=== PATIENT | male | born 1940 | race African-American/Black ===

== ENCOUNTER 2018-07-13 17:39 | Inpatient (IN) | payer OTHER ==
--- NOTE | 2018-07-13 17:55 | PDOC ---
History of Present Illness - General Chief Complaint: Weakness Stated Complaint: Weakness Time Seen by Provider: 07/13/18 17:55 History Source: Patient, Detention Records Exam Limitations: Dementia - History of Present Illness Initial Comments: 07/13/18 18:27 78 year old male with PMH dementia, COPD, vitamin B12 deficiency anemia, HLD, HTN, GERD, TIA with residual deficits, generalized edema sent to ED from [facility] for low hemoglobin 4.5 on blood work. Pt denied any complaints, including chest pain, shortness of breath, increased sputum, increased cough, blood in stool, abdominal pain, palpitations. Allergies: NKDA Past History - Past Medical History Allergies/Adverse Reactions: Allergies Allergy/AdvReac Type Severity Reaction Status Date / Time No Known Allergies Allergy Verified 07/13/18 17:47 Anemia: Yes (vit b 12 deficiency,) CVA: Yes (TIA w/o residuals) COPD: Yes Dementia: Yes GI Disorders: Yes (gerd) HTN: Yes Other medical history: osteoporosis, repeated falls. - Suicide/Smoking/Psychosocial Hx Smoking History: Unknown if ever smoked Have you smoked in the past 12 months: No Information on smoking cessation initiated: No Hx Alcohol Use: No Drug/Substance Use Hx: No Review of Systems - Review of Systems Comments:: 07/13/18 18:28 General: denied fever, chills, night sweats, generalized weakness. HEENT: denied sore throat, rhinorrhea, ear pain. Heart: denied chest pain, palpitations, syncope, lower extremity swelling, diaphoresis. Respiratory: denied shortness of breath, cough, sputum production, hemoptysis. Abdomen: denied abdominal pain, nausea, vomiting, diarrhea, constipation, blood in stool. : denied dysuria, increased urinary frequency, hematuria, urinary incontinence , flank pain. Back: denied back pain. Musculoskeletal: denied joint pain, muscle pain, joint swelling. Neurological: denied headache, dizziness, numbness, tingling, weakness. Skin: denied rash, laceration, abrasion. *Physical Exam - Vital Signs Last Vital Signs Temp Pulse Resp BP Pulse Ox 98.8 F 77 16 134/79 100 07/13/18 17:42 07/13/18 17:42 07/13/18 17:42 07/13/18 17:42 07/13/18 17:42 - Physical Exam Comments: 07/13/18 18:29 Constitutional: Well-nourished, Well-developed, appearing stated age. HEENT: head is normocephalic, atraumatic. EOMI. PERRLA. Neck: supple. Full ROM. Heart: regular rhythm. no murmurs, rubs or gallops. Lungs: bibasilar crackles and rhonchi. minimal wheezing throughout. Abdomen: soft, nontender. normal bowel sounds. no rebound, guarding, masses. Extremities: Peripheral pulses intact. 3+ pitting edema bilaterally. Neurological: CN 2-12 grossly intact. Moves all four extremities. Psych: awake, alert, oriented to person and place. not oriented to time. Follows commands. Answers questions appropriately. Moderate Sedation - Procedure Monitoring Vital Signs: Procedure Monitoring Vital Signs Temperature 98.8 F 07/13/18 17:42 Pulse Rate 77 07/13/18 17:42 Respiratory Rate 16 07/13/18 17:42 Blood Pressure 134/79 07/13/18 17:42 O2 Sat by Pulse Oximetry (%) 100 07/13/18 17:42 ED Treatment Course - LABORATORY CBC & Chemistry Diagram: 07/13/18 18:18 07/13/18 18:18 Medical Decision Making - Medical Decision Making 07/13/18 18:30 78 year old male with above PMH [facility] low hemoglobin of 4.5. Pt is asymptomatic. Initial Vital Signs Temp Pulse Resp BP Pulse Ox 98.8 F 77 16 134/79 100 07/13/18 17:42 07/13/18 17:42 07/13/18 17:42 07/13/18 17:42 07/13/18 17:42 Afebrile. No tachycardia. No tachypnea. No hypotension. No hypoxia on room air. EKG performed at Labs ordered: CBC, CMP, troponin, stool for blood, coags, T/Sx2 Imaging ordered: CXR Medications ordered: none 07/13/18 19:15 CBC WBC 3.6 K/mm3 (4.0-10.0) L 07/13/18 18:18 RBC 2.95 M/mm3 (4.00-5.60) L 07/13/18 18:18 Hgb 5.3 GM/dL (11.7-16.9) L* 07/13/18 18:18 Hct 18.2 % (35.4-49) L 07/13/18 18:18 MCV 61.9 fl (80-96) L 07/13/18 18:18 MCH 17.9 pg (25.7-33.7) L 07/13/18 18:18 MCHC 29.0 g/dl (32.0-35.9) L 07/13/18 18:18 RDW 23.3 % (11.9-15.9) H 07/13/18 18:18 Plt Count 326 K/MM3 (134-434) 07/13/18 18:18 MPV 8.9 fl (7.5-11.1) 07/13/18 18:18 Absolute Neuts (auto) 1.1 K/mm3 (1.5-8.0) L 07/13/18 18:18 Neutrophils % 30.8 % (42.8-82.8) L 07/13/18 18:18 Lymphocytes % 57.5 % (8-40) H 07/13/18 18:18 Monocytes % 8.8 % (3.8-10.2) 07/13/18 18:18 Eosinophils % 2.2 % (0-4.5) 07/13/18 18:18 Basophils % 0.7 % (0-2.0) 07/13/18 18:18 Nucleated RBC % 0 % (0-0) 07/13/18 18:18 Leukopenia. Microcytic anemia. Lymphocytosis. CMP Sodium 138 mmol/L (136-145) 07/13/18 18:18 Potassium 3.7 mmol/L (3.5-5.1) 07/13/18 18:18 Chloride 108 mmol/L (98-107) H 07/13/18 18:18 Carbon Dioxide 21 mmol/L (21-32) 07/13/18 18:18 Anion Gap 8 MMOL/L (8-16) 07/13/18 18:18 BUN 24 mg/dL (7-18) H 07/13/18 18:18 Creatinine 1.1 mg/dL (0.55-1.3) 07/13/18 18:18 Creat Clearance w eGFR > 60 (>60) 07/13/18 18:18 Random Glucose 88 mg/dL (74-106) 07/13/18 18:18 Calcium 8.1 mg/dL (8.5-10.1) L 07/13/18 18:18 Total Bilirubin 0.4 mg/dL (0.2-1) 07/13/18 18:18 AST 21 U/L (15-37) 07/13/18 18:18 ALT 25 U/L (13-61) 07/13/18 18:18 Alkaline Phosphatase 121 U/L (45-117) H 07/13/18 18:18 Troponin I < 0.02 ng/ml (0.00-0.05) 07/13/18 18:18 Total Protein 8.0 g/dl (6.4-8.2) 07/13/18 18:18 Albumin 3.0 g/dl (3.4-5.0) L 07/13/18 18:18 No electrolyte abnormalities. Elevated BUN. Normal troponin. Stool positive for blood. Microcytic anemia with increased BUN and positive blood in stool suggestive of upper GIB. Medications ordered: 2 units packed RBC, protonix 80 mg IV 07/13/18 20:04 I spoke with IM Resident Dr. Kelly Dent about the case, pt to be admitted under Dr. Roberto's service. 07/13/18 20:11 CXR performed, pending official read. Lab called, blood is ready. RN informed. *DC/Admit/Observation/Transfer Diagnosis at time of Disposition: Anemia, Occult blood positive stool, Leukopenia, GIB (gastrointestinal bleeding ) - Discharge Dispostion Condition at time of disposition: Stable Decision to Admit order: Yes - Referrals - Patient Instructions - Post Discharge Activity
[2018-07-13 18:32] LABS: HEMATOCRIT 18.2 % (35.4-49); MEAN CELL VOLUME 61.9 fl (80-96); MEAN PLT VOLUME 8.9 fl (7.5-11.1); PLATELET COUNT 326 K/MM3 (134-434); RBC 2.95 M/mm3 (4.00-5.60); RDW 23.3 % (11.9-15.9); WHITE BLOOD COUNT 3.6 K/mm3 (4.0-10.0)
[2018-07-13 18:43] LABS: HEMOGLOBIN 5.3 GM/dL (11.7-16.9); MCH 17.9 pg (25.7-33.7)
[2018-07-13 19:02] LABS: ALK PHOS 121 U/L (45-117); ANION GAP 8 MMOL/L (8-16); BILIRUBIN,TOTAL 0.4 mg/dL (0.2-1); BLOOD UREA NITROGEN 24 mg/dL (7-18); CALCIUM 8.1 mg/dL (8.5-10.1); CHLORIDE 108 mmol/L (98-107); CO2 21 mmol/L (21-32); CREATININE 1.1 mg/dL (0.55-1.3); GLUCOSE,RANDOM 88 mg/dL (74-106); POTASSIUM 3.7 mmol/L (3.5-5.1); SGOT/AST 21 U/L (15-37); SGPT/ALT 25 U/L (13-61); SODIUM 138 mmol/L (136-145)
--- NOTE | 2018-07-13 19:08 | PDOC ---
Attending Attestation - Resident Resident Name: Macie Painter - ED Attending Attestation I have performed the following: I have examined & evaluated the patient, The case was reviewed & discussed with the resident, I agree w/resident's findings & plan, Exceptions are as noted - HPI HPI: 07/13/18 19:12 The patient is a 78 year old male, with a significant PMH of vitamin B12 deficiency anemia, dementia, COPD, HLD, HTN, GERD, TIA with residual deficits, generalized edema (baseline), and osteoporosis, who presents to the emergency department today from [facility] for low measured hemoglobin (4.5). Patient denies any pain or other symptoms at this time. The patient denies chest pain, shortness of breath, headache and dizziness. Denies fever, chills, nausea, vomit, diarrhea and constipation. Denies dysuria, frequency, urgency and hematuria. Allergies: NKA Past surgical history: None reported Social history: No reported PCP: Dr. Juan C Johnson - Physicial Exam PE: 07/13/18 19:05 GENERAL: The patient is awake, oriented x 2, Nontoxic - in no acute distress. HEAD: Normocephalic, atraumatic. EYES: extraocular movements intact, pale conjunctiva ENT: Normal voice, Moist mucous membranes. NECK: Normal range of motion, supple LUNGS: b/l scattered wheezing, no acute respiratory distress HEART: iregular ABDOMEN: Soft, nontender, No guarding, no rebound. EXTREMITIES: b/l pitting edema NEUROLOGICAL: No facial assymetry, Normal speech, PSYCH: Normal mood, normal affect. SKIN: Warm, Dry, normal turgor, - Medical Decision Making 07/13/18 19:04 pt noted to be anemic to 5.3 no known source vitals normal pending guiaiac will transfuse and admit <Griffin Brnik - Last Filed: 07/13/18 19:12> - Medical Decision Making Documentation prepared by DANITZA Ruiz, acting as director of graduate medical education for Griffin Brink MD. 07/13/18 21:51 <Cielo Gordillo - Last Filed: 07/13/18 21:52>
[2018-07-13 19:14] LABS: INR 1.16 (0.83-1.09); PROTHROMBIN TIME (PATIENT) 13.7 SEC (9.7-13.0)
[2018-07-13 19:17] LABS: ACTIVATED PTT 29.8 SECONDS (25.2-36.5)
[2018-07-13] MEDS ORDERED: PANTOPRAZOLE SODIUM 40 MG VIAL IVPUSH ONE (19:38)
[2018-07-13] MEDS ORDERED: PANTOPRAZOLE SODIUM 40 MG VIAL ONE (19:56)
--- NOTE | 2018-07-13 20:09 | PN ---
Teaching Attending Note Name of Resident: Kelly Dent ATTENDING PHYSICIAN STATEMENT I saw and evaluated the patient. I reviewed the resident's note and discussed the case with the resident. I agree with the resident's findings and plan as documented. SUBJECTIVE: Patient is a 78 year old man with a significant PMH of Vitamin B12 deficiency anemia, Dementia, COPD, HLD, HTN, GERD, TIA with residual deficits, generalized edema (baseline), and osteoporosis, who presents to the ER today from [facility] for low measured hemoglobin (4.5). Patient denies any pain or other symptoms at this time. Had loose bowel movements 4 days ago, but has been constipated since then. The patient denies chest pain, shortness of breath, headache and dizziness. Denies fever, chills, nausea, vomit, dysuria, frequency , urgency or hematuria. OBJECTIVE: Alert Vital Signs Period Temp Pulse Resp BP Sys/Bocanegra Pulse Ox Last 24 Hr 98.8 F 77 16 134/79 100 HEENT: No Jaundice, eye redness or discharge, PERRLA, EOMI. Conjuctival pallor. Normocephalic, atraumatic. External ears are normal and hearing is grossly intact. No nasal discharge. Neck: Supple, nontender. No palpable adenopathy or thyromegaly. No JVD Chest: Good effort. Clear to auscultation and percussion. Heart: Regular. No S3, rub or murmur Abdomen: Distended, tympanic; soft, nontender and no HSM. No rebound or guarding. Normoactive bowel sounds. Ext: Peripheral pulses intact. Leg edema. Skin: Warm and dry. No petechiae, rash or ecchymosis. Neuro: Alert. Oriented to person. CN 2-12 grossly intact. Sensation grossly intact in all four extremities and DTR are symmetric. Abnormal Lab Results 07/13/18 07/13/18 07/13/18 18:00 18:18 18:18 WBC 3.6 L RBC 2.95 L Hgb 5.3 L* Hct 18.2 L MCV 61.9 L MCH 17.9 L MCHC 29.0 L RDW 23.3 H Absolute Neuts (auto) 1.1 L Neutrophils % 30.8 L Lymphocytes % 57.5 H PT with INR INR Chloride 108 H BUN 24 H Calcium 8.1 L Alkaline Phosphatase 121 H Albumin 3.0 L Crossmatch See Detail 07/13/18 18:44 WBC RBC Hgb Hct MCV MCH MCHC RDW Absolute Neuts (auto) Neutrophils % Lymphocytes % PT with INR 13.70 H INR 1.16 H Chloride BUN Calcium Alkaline Phosphatase Albumin Crossmatch ASSESSMENT AND PLAN: 1. Severe anemia and GI Bleeding - Patient know to have anemia due to Vitamin B12 deficiency. Acute worsening likely due to GI bleeding. Will send blood for iron studies. Being transfused PRBC. Will treat with IV protonix 40 mg q 12 hours for GI bleeding and consult GI. He has "brown stool" - no evidence active GI bleeding at this time - will hold aspirin but continue plavix since he is unable to tell us if he has cardiac stents. Will contact PCP and NH tomorrow to confirm if he has cardiac stents. CXR shows cardiomegaly and an unfolded aorta, and EKG shows Afib with no significant ST-T wave changes. Will give bowel regimen for constipation, and if his abdomen remains distended after resolution of constipation, will get a sonogram/CT of his abdomen. Going forward, will benefit from treatment with IV iron if iron deficiency is confirmed. 2. Hypoalbuminemia - Possibly due to combined effects of malnutrition and inflammation associated with comorbid chronic conditions. Will ensure adequate dietary protein intake and also consult primary teacher. Get UA to rule out proteinuria. 3. Hypertension - Restart outpatient antihypertensive drugs and revise regimen to ensure smooth [id number] good BP control. Nonpharmacologic measures to control hypertension like weight loss, salt restriction and exercise discussed. 4. DVT prophylaxis - SCDs, TEDs 5. Advance directives - Full code
[2018-07-13 21:02] LABS: ANISOCYTOSIS 3+
[2018-07-13 21:03] LABS: PLATELET ESTIMATE ADEQUATE
[2018-07-13] MEDS ORDERED: SENNOSIDES 8.6MG TABLET (FP) PO PRN (21:56)
[2018-07-13] MEDS ORDERED: PANTOPRAZOLE 40 MG TABLET (FP) PO SCH (22:00)
--- NOTE | 2018-07-13 22:28 | HP ---
CHIEF COMPLAINT: anemia PCP: Dr. Juan C Johnson HISTORY OF PRESENT ILLNESS: 78M w/ pmhx of COPD, Vitamin B12 def anemia, HLD, HTN, GERD, TIA, dementia was sent to the ED from [facility] found to have Hgb of 4.5. Upon exam, pt did not have any symptomatic complaints. He denies headaches, dizziness, lightheadedness , chest pain, palpitations, shortness of breath, dyspnea on exertion, abdominal pain, dysuria, hematuria, black stools, bright red blood in stools. He does admit to having an episode of dark brown diarrhea 3 days ago, but has not had a bowel movement since. Additionally, he admits to abdominal distension, but no pain. He denies nose bleeds, abnormal bleeding episodes, easy bruising. ER course was notable for: (1) BP 134/79, H/H 5.3/18.2, +FOBT (2) 2 pRBCs ordered, Protonix 80 IVP (3) Recent Travel: Denies PAST MEDICAL HISTORY: As per HPI (taken from [facility] records) PAST SURGICAL HISTORY: Denies Social History: Smoking: Former smoker; stopped 5 years ago, 2PPD for many years Alcohol: Denies Drugs: Denies Family History: Allergies No Known Allergies Allergy (Verified 07/13/18 17:47) HOME MEDICATIONS: REVIEW OF SYSTEMS As per HPI PHYSICAL EXAMINATION Vital Signs - 24 hr 07/13/18 07/13/18 17:42 20:26 Temperature 98.8 F 98.4 F Pulse Rate 77 Respiratory 16 Rate Blood Pressure 134/79 O2 Sat by Pulse 100 Oximetry (%) GENERAL: Awake and alert, oriented to person only. Resting comfortably in bed. HEENT: AT/NC. EOMI. ARCELIA. Dry mucus membranes. NECK: Normal range of motion, supple, no LAD, JVD. LUNGS: Crackles in R lower lung base; clear throughout rest of lung valadez b/l HEART: RRR. Normal S1, S2. No murmurs noted. ABDOMEN: Distended, but nontender to palpation. Hypoactive BS. Hypertympanic to percussion. MUSCULOSKELETAL: No CVA tenderness. UPPER EXTREMITIES: 2+ pulses, warm, well-perfused. No cyanosis. No clubbing. No peripheral edema. LOWER EXTREMITIES: 2+ pulses, warm, well-perfused. No calf tenderness. 2+ pitting edema b/l lower legs and feet. NEUROLOGICAL: Normal speech. 5/5 b/l arm and elbow flexion/extension. 5/5 L hip flexion. 4/5 R hip flexion. Limited knee flexion. SKIN: Warm, dry, normal turgor, no rashes or lesions noted, normal capillary refill. Laboratory Results - last 24 hr 07/13/18 07/13/18 07/13/18 18:00 18:18 18:18 WBC 3.6 L RBC 2.95 L Hgb 5.3 L* Hct 18.2 L MCV 61.9 L MCH 17.9 L MCHC 29.0 L RDW 23.3 H Plt Count 326 MPV 8.9 Absolute Neuts (auto) 1.1 L Neutrophils % Steel Spar Operator Neutrophils % (Manual) 62.0 Band Neutrophils % 0.0 Lymphocytes % Steel Spar Operator Lymphocytes % (Manual) 23.0 Monocytes % Steel Spar Operator Monocytes % (Manual) 10 Eosinophils % Steel Spar Operator Eosinophils % (Manual) 5.0 H Basophils % Steel Spar Operator Basophils % (Manual) 0.0 Nucleated RBC % 0 Hypochromia 3+ Platelet Estimate Adequate Poikilocytosis 1+ Anisocytosis 3+ [place] Cells Few Acanthocytes (Spur) Few PT with INR INR PTT (Actin FS) Sodium 138 Potassium 3.7 Chloride 108 H Carbon Dioxide 21 Anion Gap 8 BUN 24 H Creatinine 1.1 Creat Clearance w eGFR > 60 Random Glucose 88 Calcium 8.1 L Total Bilirubin 0.4 AST 21 ALT 25 Alkaline Phosphatase 121 H Troponin I < 0.02 Total Protein 8.0 Albumin 3.0 L Stool Occult Blood Anti-A Titer Blood Type O POSITIVE Antibody Screen Negative Crossmatch See Detail 07/13/18 07/13/18 07/13/18 18:18 18:44 18:48 WBC RBC Hgb Hct MCV MCH MCHC RDW Plt Count MPV Absolute Neuts (auto) Neutrophils % Neutrophils % (Manual) Band Neutrophils % Lymphocytes % Lymphocytes % (Manual) Monocytes % Monocytes % (Manual) Eosinophils % Eosinophils % (Manual) Basophils % Basophils % (Manual) Nucleated RBC % Hypochromia Platelet Estimate Poikilocytosis Anisocytosis Edwin Cells Acanthocytes (Spur) PT with INR 13.70 H INR 1.16 H PTT (Actin FS) 29.8 Sodium Potassium Chloride Carbon Dioxide Anion Gap BUN Creatinine Creat Clearance w eGFR Random Glucose Calcium Total Bilirubin AST ALT Alkaline Phosphatase Troponin I Total Protein Albumin Stool Occult Blood Positive Anti-A Titer Cancelled Blood Type Cancelled Antibody Screen Cancelled Crossmatch 07/13/18 18:50 WBC RBC Hgb Hct MCV MCH MCHC RDW Plt Count MPV Absolute Neuts (auto) Neutrophils % Neutrophils % (Manual) Band Neutrophils % Lymphocytes % Lymphocytes % (Manual) Monocytes % Monocytes % (Manual) Eosinophils % Eosinophils % (Manual) Basophils % Basophils % (Manual) Nucleated RBC % Hypochromia Platelet Estimate Poikilocytosis Anisocytosis Edwin Cells Acanthocytes (Spur) PT with INR INR PTT (Actin FS) Sodium Potassium Chloride Carbon Dioxide Anion Gap BUN Creatinine Creat Clearance w eGFR Random Glucose Calcium Total Bilirubin AST ALT Alkaline Phosphatase Troponin I Total Protein Albumin Stool Occult Blood Anti-A Titer Blood Type O POSITIVE Antibody Screen Crossmatch IMAGING: ASSESSMENT/PLAN: 78M w/ pmhx of COPD, Vitamin B12 def anemia, HLD, HTN, GERD, TIA, dementia was sent to the ED from [facility] found to have Hgb of 4.5 admitted for anemia. #Acute Anemia; Iron deficiency vs. Vitamin B12 vs. GI bleed -H/H 5.3/18.2 -T&S, 2U pRBCs ordered -Consider Iron studies post-transfusion -Consider GI consult as FOBT is +, however pt reports only dark brown stool -repeat CBC after 2U given -Cont to monitor for any further acute bleed -Will give bowel regimen for constipation, if abd remains distended after resolution of constipation, consider sonogram/CT of his abdomen. Going forward, will benefit from treatment with IV iron if iron deficiency is confirmed. #HTN Cont home meds: Metoprolol Succinate 12.5 PO QD #HLD Cont home meds: Atorvastatin 80 PO HS #COPD Cont home meds: Duonebs #Vitamin B12 deficiency anemia -Low MCV 61.9; likely not etiology of acute anemia this admission -outpatient follow up #Osteoporosis -Pt takes Vitamin D2 50,000U weekly and Fosamax 70 PO weekly. May continue as outpatient after discharge. #Hx of TIA -Hold Aspirin and Plavix for now #Dementia -Pt not currently on meds accrording to [place] medication list. #Prophylaxis -SCDs; hold AC -Protonix 40 mg IVP BID #FEN -no IVf as patient is getting 2U -recheck CBC/CMP in AM -sodium-controlled diet dispo -full code -admit to med-surg Visit type - Emergency Visit Emergency Visit: Yes ED Registration Date: 07/13/18 Care time: The patient presented to the Emergency Department on the above date and was hospitalized for further evaluation of their emergent condition. - New Patient This patient is new to me today: Yes Date on this admission: 07/14/18 - Critical Care Critical Care patient: No
[2018-07-14 01:20] VITALS: BMI 21.2
[2018-07-14] MEDS: DOCUSATE SODIUM 100 MG CAPSULE (FP) PO SCH ×3 (06:32→22:11)
[2018-07-14 07:42] LABS: HEMATOCRIT 19.9 % (35.4-49); MCH 20.5 pg (25.7-33.7); MCHC 30.8 g/dl (32.0-35.9); MEAN CELL VOLUME 66.5 fl (80-96); MEAN PLT VOLUME 8.7 fl (7.5-11.1); PLATELET COUNT 243 K/MM3 (134-434); RBC 2.99 M/mm3 (4.00-5.60); RDW 26.7 % (11.9-15.9); WHITE BLOOD COUNT 4.4 K/mm3 (4.0-10.0)
[2018-07-14 08:19] LABS: HEMOGLOBIN 6.1 GM/dL (11.7-16.9)
[2018-07-14 08:55] LABS: ALBUMIN 2.6 g/dl (3.4-5.0); ALK PHOS 102 U/L (45-117); ANION GAP 9 MMOL/L (8-16); BILIRUBIN,TOTAL 0.8 mg/dL (0.2-1); BLOOD UREA NITROGEN 22 mg/dL (7-18); CALCIUM 7.8 mg/dL (8.5-10.1); CHLORIDE 111 mmol/L (98-107); CO2 21 mmol/L (21-32); CREATININE 1.1 mg/dL (0.55-1.3); GLUCOSE,RANDOM 76 mg/dL (74-106); POTASSIUM 3.2 mmol/L (3.5-5.1); SGOT/AST 15 U/L (15-37); SGPT/ALT 20 U/L (13-61); SODIUM 140 mmol/L (136-145); TOT PROT 6.6 g/dl (6.4-8.2)
[2018-07-14] MEDS: PANTOPRAZOLE SODIUM 40 MG VIAL IVPUSH SCH ×2 (10:04→22:10)
[2018-07-14] MEDS: metoPROLOL SUCCINATE 25 MG TAB.SR.24H (FP) PO SCH (10:05)
[2018-07-14] MEDS: POLYETHYLENE GLYCOL 3350 119 GM BTL PO SCH (10:05)
--- NOTE | 2018-07-14 11:26 | PN ---
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 [facility] Stop: 07/14/18 16:00 Potassium Chloride (Potassium Chloride 10 Meq Premix Ivpb -) 10 meq in 100 mls @ 100 mls/hr IVPB Q60M [facility] Stop: 07/14/18 14:29 Metoprolol Succinate (Toprol Xl -) 12.5 mg PO DAILY [facility] Last Admin: 07/14/18 10:05 Dose: 12.5 mg Pantoprazole Sodium (Protonix Iv) 40 mg IVPUSH BID [facility] Last Admin: 07/14/18 10:04 Dose: 40 mg Polyethylene Glycol (Miralax (For Daily Use) -) 17 gm PO DAILY [facility] Last Admin: 07/14/18 10:05 Dose: 17 gm Senna (Senna -) 2 tab PO HS PRN PRN Reason: CONSTIPATION - Objective Vital Signs: Vital Signs Temperature 98.3 F 07/14/18 05:33 Pulse Rate 72 07/14/18 05:33 Respiratory Rate 20 07/14/18 05:33 Blood Pressure 131/77 07/14/18 05:33 O2 Sat by Pulse Oximetry (%) 97 07/13/18 22:55 Constitutional: Yes: No Distress, Calm Eyes: Yes: Conjunctiva Clear Neck: Yes: Supple Cardiovascular: Yes: Regular Rate and Rhythm Respiratory: Yes: CTA Bilaterally Gastrointestinal: Yes: Soft Edema: No Neurological: Yes: Alert Psychiatric: Yes: Alert Labs: CBC, BMP 07/14/18 07:00 07/14/18 07:00 INR, PTT INR 1.16 (0.83-1.09) H 07/13/18 18:44 Problem List - Problems (1) Anemia requiring transfusions Code(s): D64.9 - ANEMIA, UNSPECIFIED (2) Dementia Code(s): F03.90 - UNSPECIFIED DEMENTIA WITHOUT BEHAVIORAL DISTURBANCE Assessment/Plan transfuse lasix in between i/v protonix hold plavix for now gi consult ekg-- routine -- not done -- will order will follow
[2018-07-14] MEDS ORDERED: FUROSEMIDE 40 MG/4 ML INJECTABLE VIAL IVPUSH SCH (12:00)
[2018-07-14 12:20] LABS: ANISOCYTOSIS 3+; MACROCYTOSIS 0; PLATELET ESTIMATE NORMAL; TARGET CELLS 1+
--- NOTE | 2018-07-14 12:53 | EKG ---
Test Reason : Blood Pressure : / mmHG Vent. Rate : 063 BPM Atrial Rate : 326 BPM P-R Int : 000 ms QRS Dur : 076 ms QT Int : 488 ms P-R-T Axes : 000 -13 013 degrees QTc Int : 499 ms POOR DATA QUALITY, INTERPRETATION MAY BE ADVERSELY AFFECTED ATRIAL FIBRILLATION JUNCTIONAL ST DEPRESSION, PROBABLY NORMAL PROLONGED QT ABNORMAL ECG NO PREVIOUS ECGS AVAILABLE Confirmed by KAVON IBARRA, PER ([id number]) on 07/14/2018 12:53:14 PM Referred By: Confirmed By:PER JACOBSON MD
--- NOTE | 2018-07-14 15:00 | EKG ---
Test Reason : Blood Pressure : / mmHG Vent. Rate : 053 BPM Atrial Rate : 053 BPM P-R Int : 184 ms QRS Dur : 080 ms QT Int : 456 ms P-R-T Axes : 054 003 034 degrees QTc Int : 427 ms SINUS BRADYCARDIA WITH MARKED SINUS ARRHYTHMIA Confirmed by VALE GRULLON MD ([id number]) on 07/14/2018 3:00:49 PM Referred By: Confirmed By:VALE GRULLON MD
[2018-07-14] MEDS: KCL 10 MEQ IVPB 10 MEQ/100 ML INFUS.BAG IVPB SCH ×3 (16:53→23:21)
[2018-07-14] MEDS: ATORVASTATIN CA 80 MG TABLET (FP) PO SCH (22:10)
[2018-07-15] MEDS: KCL 10 MEQ IVPB 10 MEQ/100 ML INFUS.BAG IVPB SCH (00:38)
[2018-07-15] MEDS: DOCUSATE SODIUM 100 MG CAPSULE (FP) PO SCH ×3 (06:11→22:14)
[2018-07-15 08:05] LABS: EOS % 5.4 % (0-4.5); HEMATOCRIT 25.5 % (35.4-49); HEMOGLOBIN 8.1 GM/dL (11.7-16.9); LYMPH % 45.4 % (8-40); MCH 21.7 pg (25.7-33.7); MCHC 31.7 g/dl (32.0-35.9); MEAN CELL VOLUME 68.7 fl (80-96); MEAN PLT VOLUME 8.5 fl (7.5-11.1); MONO % 8.1 % (3.8-10.2); NEUT % 40.1 % (42.8-82.8); PLATELET COUNT 250 K/MM3 (134-434); RBC 3.71 M/mm3 (4.00-5.60); RDW 27.8 % (11.9-15.9); WHITE BLOOD COUNT 5.5 K/mm3 (4.0-10.0)
[2018-07-15 08:11] LABS: ADD RBC MORPHOLOGY YES
[2018-07-15 08:36] LABS: ALBUMIN 2.8 g/dl (3.4-5.0); ALK PHOS 111 U/L (45-117); ANION GAP 7 MMOL/L (8-16); BILIRUBIN,TOTAL 1.1 mg/dL (0.2-1); BLOOD UREA NITROGEN 14 mg/dL (7-18); CALCIUM 8.2 mg/dL (8.5-10.1); CHLORIDE 111 mmol/L (98-107); CO2 23 mmol/L (21-32); GLUCOSE,RANDOM 76 mg/dL (74-106); POTASSIUM 3.4 mmol/L (3.5-5.1); SGOT/AST 18 U/L (15-37); SGPT/ALT 20 U/L (13-61); SODIUM 141 mmol/L (136-145)
[2018-07-15] MEDS: PANTOPRAZOLE SODIUM 40 MG VIAL IVPUSH SCH ×2 (10:25→22:14)
[2018-07-15] MEDS: metoPROLOL SUCCINATE 25 MG TAB.SR.24H (FP) PO SCH (10:25)
[2018-07-15] MEDS: POLYETHYLENE GLYCOL 3350 119 GM BTL PO SCH (10:25)
--- NOTE | 2018-07-15 12:51 | PN ---
Progress Note (short form) - Note Progress Note: pt seen/ examined feels good no complains denies cp/sob got transfusion Vital Signs Temp 98.5 F 07/15/18 09:05 Pulse 66 07/15/18 09:05 Resp 16 07/15/18 09:05 BP 127/64 07/15/18 09:05 Pulse Ox 97 07/15/18 09:05 Intake & Output 07/14/18 07/15/18 07/15/18 23:59 11:59 23:59 Intake Total 1910 750 Output Total 600 450 Balance 1310 300 Intake: IVPB 200 200 Oral 1000 550 Packed Cells 710 Output: Urine 600 450 Void 600 450 Other: Voiding Method Urinal Urinal Bowel Movement Yes: SOFT BOWEL M. # Bowel Movements 1 Active Medications Atorvastatin Calcium (Lipitor -) 80 mg PO HS [facility] Last Admin: 07/14/18 22:10 Dose: 80 mg Docusate Sodium (Colace -) 100 mg PO TID [facility] Last Admin: 07/15/18 06:11 Dose: 100 mg Furosemide (Lasix Injection -) 40 mg IVPUSH DAILY [facility] Metoprolol Succinate (Toprol Xl -) 12.5 mg PO DAILY [facility] Last Admin: 07/15/18 10:25 Dose: 12.5 mg Pantoprazole Sodium (Protonix Iv) 40 mg IVPUSH BID [facility] Last Admin: 07/15/18 10:25 Dose: 40 mg Polyethylene Glycol (Miralax (For Daily Use) -) 17 gm PO DAILY [facility] Last Admin: 07/15/18 10:25 Dose: 17 gm Senna (Senna -) 2 tab PO HS PRN PRN Reason: CONSTIPATION CBC, BMP 07/15/18 06:40 07/15/18 06:40 - Objective Constitutional: Yes: No Distress, Calm and comfortable. Eyes: Yes: Conjunctiva Clear Neck: Yes: Supple. no jvd Cardiovascular: Yes: Regular Rate and Rhythm Respiratory: Yes: crackles at bases Gastrointestinal: Yes: Soft Edema: No Neurological: Yes: Alert Psychiatric: Yes: Alert Assessment/Plan s/p transfusion monitor h/h crackles - at bases chf ? check bnp-- add to labs echo continue i/v lasix nebulizer treatment i/v protonix hold plavix for now gi consult pending will consult cardiology also will follow Problem List - Problems (1) Anemia requiring transfusions Code(s): D64.9 - ANEMIA, UNSPECIFIED (2) Dementia Code(s): F03.90 - UNSPECIFIED DEMENTIA WITHOUT BEHAVIORAL DISTURBANCE
[2018-07-15] MEDS ORDERED: ALBUTEROL SO4 0.083% IH SOL 2.5 MG/3 ML VIAL.NEB. NEB PRN (12:52)
[2018-07-15] MEDS: FUROSEMIDE 40 MG/4 ML INJECTABLE VIAL IVPUSH SCH (12:54)
[2018-07-15 13:48] LABS: N-TERMINAL BNP 1851.3 pg/ml (5-450)
[2018-07-15] MEDS: POTASSIUM CHLORIDE TABS 20 MEQ TABLET.ER (FP) PO SCH (16:29)
[2018-07-15] MEDS: ATORVASTATIN CA 80 MG TABLET (FP) PO SCH (22:14)
[2018-07-16 09:47] LABS: HEMATOCRIT 26.6 % (35.4-49); HEMOGLOBIN 8.6 GM/dL (11.7-16.9); MCH 22.4 pg (25.7-33.7); MCHC 32.2 g/dl (32.0-35.9); MEAN CELL VOLUME 69.5 fl (80-96); MEAN PLT VOLUME 8.7 fl (7.5-11.1); PLATELET COUNT 254 K/MM3 (134-434); RBC 3.83 M/mm3 (4.00-5.60); RDW 28.6 % (11.9-15.9); WHITE BLOOD COUNT 6.2 K/mm3 (4.0-10.0)
[2018-07-16 09:51] LABS: ALBUMIN 2.7 g/dl (3.4-5.0); ALK PHOS 113 U/L (45-117); ANION GAP 7 MMOL/L (8-16); BILIRUBIN,TOTAL 0.9 mg/dL (0.2-1); BLOOD UREA NITROGEN 15 mg/dL (7-18); CALCIUM 7.9 mg/dL (8.5-10.1); CHLORIDE 108 mmol/L (98-107); CHOLESTEROL 62 mg/dL (50-200); CO2 24 mmol/L (21-32); GLUCOSE,RANDOM 75 mg/dL (74-106); HDL CHOLESTEROL 39 mg/dL (40-60); SGOT/AST 20 U/L (15-37); SGPT/ALT 21 U/L (13-61); SODIUM 140 mmol/L (136-145); TOT PROT 6.8 g/dl (6.4-8.2); TRIGLYCERIDES 46 mg/dL (0-150)
[2018-07-16 09:52] LABS: ADD RBC MORPHOLOGY YES
--- NOTE | 2018-07-16 10:07 | PN ---
Progress Note (short form) - Note Progress Note: pt seen/ examined feels good no complains denies cp/sob comfortable no obvious bleeding Vital Signs Temp 98.3 F 07/16/18 06:00 Pulse 55 L 07/16/18 06:00 Resp 20 07/16/18 06:00 BP 117/64 07/16/18 06:00 Pulse Ox 98 07/15/18 21:00 Intake & Output 07/15/18 07/15/18 07/16/18 11:59 23:59 11:59 Intake Total 750 700 Output Total 450 500 200 Balance 300 200 -200 Intake: IVPB 200 Oral 550 700 Output: Urine 450 500 200 Void 450 500 200 Other: Voiding Method Urinal Urinal Urinal # Unmeasured Voids Void 2 Bowel Movement No Active Medications Albuterol Sulfate (Ventolin 0.083% Nebulizer Soln -) 1 amp NEB Q6H PRN PRN Reason: SHORT OF BREATH/WHEEZING Atorvastatin Calcium (Lipitor -) 80 mg PO HS [facility] Last Admin: 07/15/18 22:14 Dose: 80 mg Docusate Sodium (Colace -) 100 mg PO TID [facility] Last Admin: 07/15/18 22:14 Dose: Not Given Furosemide (Lasix Injection -) 40 mg IVPUSH DAILY [facility] Last Admin: 07/15/18 12:54 Dose: 40 mg Metoprolol Succinate (Toprol Xl -) 12.5 mg PO DAILY [facility] Last Admin: 07/15/18 10:25 Dose: 12.5 mg Pantoprazole Sodium (Protonix Iv) 40 mg IVPUSH BID [facility] Last Admin: 07/15/18 22:14 Dose: 40 mg Polyethylene Glycol (Miralax (For Daily Use) -) 17 gm PO DAILY [facility] Last Admin: 07/15/18 10:25 Dose: 17 gm Potassium Chloride (K-Dur -) 20 meq PO DAILY [facility] Last Admin: 07/15/18 16:29 Dose: 20 meq Senna (Senna -) 2 tab PO HS PRN PRN Reason: CONSTIPATION CBC, BMP 07/16/18 07:45 07/16/18 07:45 Physical Constitutional: Yes: No Distress, Calm and comfortable. Eyes: Yes: Conjunctiva Clear Neck: Yes: Supple. no jvd Cardiovascular: Yes: Regular Rate and Rhythm Respiratory: Yes: crackles at bases -- better Gastrointestinal: Yes: Soft/ non tender. bs + Edema: No Neurological: Yes: Alert Psychiatric: Yes: Alert Assessment/Plan stable monitor h/h-- stabe bnp - elevated echo -pending continue i/v lasix nebulizer treatment i/v protonix hold plavix for now gi consult pending as well as cardiology daily oob - chair will follow Problem List - Problems (1) Anemia requiring transfusions Code(s): D64.9 - ANEMIA, UNSPECIFIED (2) Dementia Code(s): F03.90 - UNSPECIFIED DEMENTIA WITHOUT BEHAVIORAL DISTURBANCE
[2018-07-16] MEDS: PANTOPRAZOLE SODIUM 40 MG VIAL IVPUSH SCH ×2 (10:15→22:44)
[2018-07-16] MEDS: POTASSIUM CHLORIDE TABS 20 MEQ TABLET.ER (FP) PO SCH (10:17)
[2018-07-16] MEDS: POLYETHYLENE GLYCOL 3350 119 GM BTL PO SCH (10:17)
[2018-07-16] MEDS: FUROSEMIDE 40 MG/4 ML INJECTABLE VIAL IVPUSH SCH (10:17)
[2018-07-16] MEDS: metoPROLOL SUCCINATE 25 MG TAB.SR.24H (FP) PO SCH (10:20)
--- NOTE | 2018-07-16 11:32 | CON.CARD ---
Consult Consult Specialty:: Cardiology Referred by:: Juan C Johnson MD Reason for Consultation:: Pre-procedure CV evaluation - History of Present Illness Chief Complaint: Severe anemia History of Present Illness: Patient is a 78 year old man with a significant PMH of Vitamin B12 deficiency anemia, Dementia, COPD, HLD, HTN, GERD, TIA with residual deficits, and osteoporosis, admitted from [facility] for low measured hemoglobin ( 4.5). Patient denies chest pain, shortness of breath, near or true syncope, hematochemezia or melena., no symptoms of anemia-associated high output failure Transfused with subsequent stable Hgb, anticipate panendoscopy. - History Source History Provided By: Medical Record Limitations to Obtaining History: Poor Historian - Alcohol/Substance Use Hx Alcohol Use: No - Smoking History Smoking history: Unknown if ever smoked Have you smoked in the past 12 months: No Home Medications - Allergies Allergies/Adverse Reactions: Allergies Allergy/AdvReac Type Severity Reaction Status Date / Time No Known Allergies Allergy Verified 07/13/18 17:47 - Home Medications Home Medications: Ambulatory Orders Acetaminophen 325 mg PO Q6H PRN 07/13/18 Alendronate Sodium/Vitamin D3 [Fosamax Plus D 70 mg-5,600 Iu vIT d] 70 mg PO WEEKLY 07/13/18 Aspirin [Adult Aspirin Regimen] 81 mg PO DAILY 07/13/18 Atorvastatin Ca [Lipitor] 80 mg PO HS 07/13/18 Clopidogrel Bisulfate [Clopidogrel] 75 mg PO DAILY 07/13/18 Cyanocobalamin Vit B-12 Inj. [Vitamin B12 Injection -] 1,000 units IM MONTHLY Ergocalciferol [Vitamin D2] 50,000 unit PO WEEKLY 07/13/18 Furosemide [Lasix] 40 mg PO BID 07/13/18 Ipratropium/Albuterol Sulfate [Iprat-Albut 0.5-3(2.5) mg/3 ml] 3 ml IH Q4H PRN 07/13/18 Metoprolol Succinate 12.5 mg PO DAILY 07/13/18 Pantoprazole Sodium 40 mg PO DAILY 07/13/18 Vital Signs: Vital Signs Temperature 98.3 F 07/16/18 06:00 Pulse Rate 55 L 07/16/18 06:00 Respiratory Rate 20 07/16/18 06:00 Blood Pressure 117/64 07/16/18 06:00 O2 Sat by Pulse Oximetry (%) 98 07/15/18 21:00 Constitutional: Yes: No Distress, Calm Neck: Yes: Supple Respiratory: Yes: Regular, Diminished Gastrointestinal: Yes: Soft, Hypoactive Bowel Sounds Cardiovascular: Yes: Regular Rate and Rhythm JVD: No Carotid Bruit: No Heart Sounds: Yes: S1, S2 Murmur: Yes: Systolic Murmur, Grade 1 Edema: No - Other Data Labs, Other Data: CBC, BMP 07/16/18 07:45 07/16/18 07:45 INR, PTT INR 1.16 (0.83-1.09) H 07/13/18 18:44 Troponin, BNP 07/15/18 06:40 B-Natriuretic Peptide 1851.3 H Troponin, BNP 07/15/18 06:40 B-Natriuretic Peptide 1851.3 H SB @ 53 with sinus arrhythmia Ejection Fraction %: LVEF > or = 40 % Imaging - Results Chest X-ray: Report Reviewed (Congestive changes) Problem List - Problems (1) TIA (transient ischemic attack) Code(s): G45.9 - TRANSIENT CEREBRAL ISCHEMIC ATTACK, UNSPECIFIED (2) Hypertensive cardiomyopathy Code(s): I11.9 - HYPERTENSIVE HEART DISEASE WITHOUT HEART FAILURE; I43 - CARDIOMYOPATHY IN DISEASES CLASSIFIED ELSEWHERE Qualifiers: Heart failure presence: without heart failure Qualified Code(s): I11.9 - Hypertensive heart disease without heart failure; I43 - Cardiomyopathy in diseases classified elsewhere (3) Anemia requiring transfusions Code(s): D64.9 - ANEMIA, UNSPECIFIED (4) GIB (gastrointestinal bleeding) Code(s): K92.2 - GASTROINTESTINAL HEMORRHAGE, UNSPECIFIED Qualifiers: GI bleed type/associated pathology: unspecified gastrointestinal hemorrhage type Qualified Code(s): K92.2 - Gastrointestinal hemorrhage, unspecified Assessment/Plan 1. Severe acute on chronic anemia with underlying Vitamin B12 deficiency anemia , r/o GI source 2. Dementia 3. COPD 4. HLD 5. HTN 6. TIA with residual deficits P:1. Continue Toprol 12.5 qd, Lipitor 80 qd, DAPT for TIA prophylaxis held for now 2. D/c Lasix, BD, O2 as needed 3. Patient may proceed with EGD/colonoscopy from SV-standpoint given absence of symptoms of acute coronary syndrome, decompensated CHF or maliganant arrhythmia 4. Thank you for consultative opportunity, GI prophylaxis
[2018-07-16 13:31] LABS: PLATELET ESTIMATE NORMAL
[2018-07-16] MEDS: DOCUSATE SODIUM 100 MG CAPSULE (FP) PO SCH ×2 (14:55→22:45)
[2018-07-16 17:38] LABS: ANISOCYTOSIS 3+; MACROCYTOSIS 1+
[2018-07-16 17:40] LABS: TEAR DROP CELLS 1+
[2018-07-16] MEDS: ATORVASTATIN CA 80 MG TABLET (FP) PO SCH (22:45)
[2018-07-17] MEDS: DOCUSATE SODIUM 100 MG CAPSULE (FP) PO SCH ×4 (06:28→22:24)
[2018-07-17 08:45] LABS: HEMATOCRIT 26.3 % (35.4-49); HEMOGLOBIN 8.3 GM/dL (11.7-16.9); MCHC 31.5 g/dl (32.0-35.9); MEAN CELL VOLUME 69.7 fl (80-96); MEAN PLT VOLUME 8.7 fl (7.5-11.1); PLATELET COUNT 265 K/MM3 (134-434); RBC 3.77 M/mm3 (4.00-5.60); RDW 29.2 % (11.9-15.9); WHITE BLOOD COUNT 5.4 K/mm3 (4.0-10.0)
[2018-07-17 08:56] LABS: ADD RBC MORPHOLOGY YES
[2018-07-17] MEDS: metoPROLOL SUCCINATE 25 MG TAB.SR.24H (FP) PO SCH (08:59)
[2018-07-17] MEDS: PANTOPRAZOLE SODIUM 40 MG VIAL IVPUSH SCH (08:59)
[2018-07-17] MEDS: POTASSIUM CHLORIDE TABS 20 MEQ TABLET.ER (FP) PO SCH (08:59)
[2018-07-17] MEDS: POLYETHYLENE GLYCOL 3350 119 GM BTL PO SCH (08:59)
--- NOTE | 2018-07-17 09:49 | CON.GI ---
Consult Consult Specialty:: GI Referred by:: Dr. Thomas Johnson Reason for Consultation:: Anemia - History of Present Illness Chief Complaint: Patient dednies any focal complaints History of Present Illness: 78M admitted from [place] for evaluation of anemia. Hgb reported 4.5 as outpatient in ER report. In ED Hgb was 5.4 and the anemia was noted to be microcytic in nature. He was given 4 U PRBC. His nurse reports that he was subsequently treated for volume overload. He denies focal GI complaints. The H&P states that Mr. Isabel reported dark brown diarrhea a few days prior to admission however he denies this currently. There was no overt bleeding reported. Mr. Jarvis is a poor historian. he denies having had an EGD and colonoscopy in the past. There is no family history of colorectal cancer. Specimen sent to the lab for guaiac was positive. He is maintained on both ASA and Plavix for ? reasons ( given ? 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 Cardio/Vascular: Yes: Hyperlipdemia Pulmonary: Yes: COPD Gastrointestinal: Yes: GERD Heme/Onc: Yes: B12 Deficiency - Alcohol/Substance Use Hx Alcohol Use: No - Smoking History Smoking history: Unknown if ever smoked Have you smoked in the past 12 months: No - Social History Usual Living Arrangement: Fdc ADL: Support Services Place of : [facility] History of Recent Travel: No Home Medications - Allergies Allergies/Adverse Reactions: Allergies Allergy/AdvReac Type Severity Reaction Status Date / Time No Known Allergies Allergy Verified 07/13/18 17:47 - Home Medications Home Medications: Ambulatory Orders Acetaminophen 325 mg PO Q6H PRN 07/13/18 Alendronate Sodium/Vitamin D3 [Fosamax Plus D 70 mg-5,600 Iu vIT d] 70 mg PO WEEKLY 07/13/18 Aspirin [Adult Aspirin Regimen] 81 mg PO DAILY 07/13/18 Atorvastatin Ca [Lipitor] 80 mg PO HS 07/13/18 Clopidogrel Bisulfate [Clopidogrel] 75 mg PO DAILY 07/13/18 Cyanocobalamin Vit B-12 Inj. [Vitamin B12 Injection -] 1,000 units IM MONTHLY Ergocalciferol [Vitamin D2] 50,000 unit PO WEEKLY 07/13/18 Furosemide [Lasix] 40 mg PO BID 07/13/18 Ipratropium/Albuterol Sulfate [Iprat-Albut 0.5-3(2.5) mg/3 ml] 3 ml IH Q4H PRN 07/13/18 Metoprolol Succinate 12.5 mg PO DAILY 07/13/18 Pantoprazole Sodium 40 mg PO DAILY 07/13/18 Family Disease History - Family Disease History Family History: Unable to Obtain Review of Systems - Review of Systems Cardiovascular: denies: Chest Pain Respiratory: denies: SOB Gastrointestinal: denies: Abdominal Pain, Constipation, Diarrhea, Dysphagia, Melena, Rectal Bleeding, Vomiting Physical Exam-GI Vital Signs: Vital Signs Temperature 98.0 F 07/17/18 09:00 Pulse Rate 57 L 07/17/18 09:00 Respiratory Rate 20 07/17/18 09:00 Blood Pressure 131/78 07/17/18 09:00 O2 Sat by Pulse Oximetry (%) 96 07/16/18 21:00 Constitutional: Yes: Calm Eyes: No: Sclera Icterus Cardiovascular: Yes: Regular Rate and Rhythm. No: Murmur Respiratory: Yes: CTA Bilaterally Gastrointestinal Inspection: No: Distention, Scars ...Auscultate: Yes: Hyperactive Bowel Sounds ...Palpate: Yes: Soft. No: Hepatomegaly, Splenomegaly, Tenderness ...Rectal Exam: Yes: Other (Limited as the patient would not flex hips appropriately. No distal anorectal masses palpated, light coles/brown stool, guaiac negative) Edema: No (No LE edema) Neurological: Yes: Alert, Oriented (x person only. He believes that he is in [facility]) Labs: CBC, BMP 07/17/18 07:00 INR, PTT INR 1.16 (0.83-1.09) H 07/13/18 18:44 Problem List - Problems (1) Anemia Assessment/Plan: Microcytic anemia: No overt bleeding reported I discussed EGD / colonoscopy with Mr. Jarvis to evaluate for potential intralumina source of bleeding such as polyps., PUD or cancer os the GI tract such as colon cancer. We discussed potential riskls of the procedure like but not limited to bleeidng, perforation requiring surgery to repair, infection and sedation medication effects all of which could be potentially life threatening. He stated that he would think about these procedures. He also explained that he has no family members who he would like me to speak to regarding his current clinical status. On a mini mental status exam, Mr. Jarvis was oriented only to person. I do not suspect that he would be able to given an informed consent for procedures. Consider a psych evaluation to further determine capacity. If Mr. Jarvis is amenable to endoscopic evaluation and once consent issue is clarified, please recall. For now: Monitor H/H and for signs of overt bleeding Consider heme evaluation Consider psych evaluation Check Iron studies Protonix 40mg PO BID for 5 days followed by once daily Code(s): D64.9 - ANEMIA, UNSPECIFIED Qualifiers: Anemia type: unspecified type Qualified Code(s): D64.9 - Anemia, unspecified
[2018-07-17] MEDS: PANTOPRAZOLE 40 MG TABLET (FP) PO SCH ×2 (10:18→22:26)
[2018-07-17 10:27] LABS: ALBUMIN 2.6 g/dl (3.4-5.0); ALK PHOS 107 U/L (45-117); ANION GAP 8 MMOL/L (8-16); BILIRUBIN,TOTAL 0.7 mg/dL (0.2-1); BLOOD UREA NITROGEN 17 mg/dL (7-18); CALCIUM 7.8 mg/dL (8.5-10.1); CHLORIDE 109 mmol/L (98-107); CO2 24 mmol/L (21-32); CREATININE 1.1 mg/dL (0.55-1.3); GLUCOSE,RANDOM 77 mg/dL (74-106); POTASSIUM 3.7 mmol/L (3.5-5.1); SGOT/AST 17 U/L (15-37); SGPT/ALT 20 U/L (13-61); SODIUM 140 mmol/L (136-145); TOT PROT 6.8 g/dl (6.4-8.2)
[2018-07-17 11:11] LABS: ANISOCYTOSIS 2+; OVALOCYTE 1+; PLATELET ESTIMATE NORMAL
--- NOTE | 2018-07-17 13:35 | PN ---
Progress Note (short form) - Note Progress Note: pt seen/ examined chart reviewed all consults noted/ discussed with GI Will discuss with cardiology also denies cp/ sob denies abd pain Vital Signs Temp 98.0 F 07/17/18 09:00 Pulse 57 L 07/17/18 09:00 Resp 20 07/17/18 09:00 BP 131/78 07/17/18 09:00 Pulse Ox 97 07/17/18 09:00 Intake & Output 07/16/18 07/17/18 07/17/18 23:59 11:59 23:59 Intake Total 580 Balance 580 Intake: Oral 580 Other: Voiding Method Urinal Urinal # Unmeasured Voids Void 3 4 Bowel Movement Yes No # Bowel Movements 1 Active Medications Albuterol Sulfate (Ventolin 0.083% Nebulizer Soln -) 1 amp NEB Q6H PRN PRN Reason: SHORT OF BREATH/WHEEZING Atorvastatin Calcium (Lipitor -) 80 mg PO HS [facility] Last Admin: 07/16/18 22:45 Dose: 80 mg Docusate Sodium (Colace -) 100 mg PO TID [facility] Last Admin: 07/17/18 06:28 Dose: 100 mg Furosemide (Lasix -) 40 mg PO DAILY [facility] Metoprolol Succinate (Toprol Xl -) 12.5 mg PO DAILY [facility] Last Admin: 07/17/18 08:59 Dose: 12.5 mg Pantoprazole Sodium (Protonix -) 40 mg PO BID [facility] Last Admin: 07/17/18 10:18 Dose: Not Given Polyethylene Glycol (Miralax (For Daily Use) -) 17 gm PO DAILY [facility] Last Admin: 07/17/18 08:59 Dose: 17 gm Potassium Chloride (K-Dur -) 20 meq PO DAILY [facility] Last Admin: 07/17/18 08:59 Dose: 20 meq Senna (Senna -) 2 tab PO HS PRN PRN Reason: CONSTIPATION Last Admin: 07/16/18 22:45 Dose: 2 tab CBC, BMP 07/17/18 07:00 07/17/18 07:00 Physical Constitutional: Yes: No Distress, Calm and comfortable. Eyes: Yes: Conjunctiva Clear Neck: Yes: Supple. no jvd Cardiovascular: Yes: Regular Rate and Rhythm Respiratory: Yes: crackles at bases -- better Gastrointestinal: Yes: Soft/ non tender. bs + Edema: No Neurological: Yes: Alert Psychiatric: Yes: Alert Assessment/Plan stable monitor h/h-- stable bnp - elevated echo -pending will continue with lasix nebulizer treatment i/v protonix hold plavix for now f/u cxr daily oob - chair will follow discussed with nursing staff also will consult psych also -- i do believe pt has capacity . I also discussed about endoscopy-- says will think about it Problem List - Problems (1) Anemia requiring transfusions Code(s): D64.9 - ANEMIA, UNSPECIFIED (2) Dementia Code(s): F03.90 - UNSPECIFIED DEMENTIA WITHOUT BEHAVIORAL DISTURBANCE
[2018-07-17] MEDS: FUROSEMIDE 40 MG TABLET (FP) PO SCH (14:48)
--- NOTE | 2018-07-17 15:16 | PN ---
Progress Note, Physician History of Present Illness: Hgb stable post-transfusion, oral diuretics resumed. No complaints. - Current Medication List Current Medications: Active Medications Albuterol Sulfate (Ventolin 0.083% Nebulizer Soln -) 1 amp NEB Q6H PRN PRN Reason: SHORT OF BREATH/WHEEZING Atorvastatin Calcium (Lipitor -) 80 mg PO HS [facility]S [facility] Last Admin: 07/16/18 22:45 Dose: 80 mg Docusate Sodium (Colace -) 100 mg PO TID [facility]S [facility] Last Admin: 07/17/18 14:48 Dose: 100 mg Furosemide (Lasix -) 40 mg PO DAILY [facility] 234 [facility]S AT [facility] Last Admin: 07/17/18 14:48 Dose: 40 mg Metoprolol Succinate (Toprol Xl -) 12.5 mg PO DAILY [facility] 234 [facility]S [facility] Last Admin: 07/17/18 08:59 Dose: 12.5 mg Pantoprazole Sodium (Protonix -) 40 mg PO BID [facility] 234 [facility]S [facility] Last Admin: 07/17/18 10:18 Dose: Not Given Polyethylene Glycol (Miralax (For Daily Use) -) 17 gm PO DAILY [facility] Last Admin: 07/17/18 08:59 Dose: 17 gm Potassium Chloride (K-Dur -) 20 meq PO DAILY [facility] 234 [facility]S AT [facility] Last Admin: 07/17/18 08:59 Dose: 20 meq Senna (Senna -) 2 tab PO HS PRN PRN Reason: CONSTIPATION Last Admin: 07/16/18 22:45 Dose: 2 tab - Objective Vital Signs: Vital Signs Temperature 98.4 F 07/17/18 15:03 Pulse Rate 56 L 07/17/18 15:03 Respiratory Rate 20 07/17/18 09:00 Blood Pressure 147/92 07/17/18 15:03 O2 Sat by Pulse Oximetry (%) 97 07/17/18 09:00 Constitutional: Yes: No Distress, Calm Neck: Yes: Supple Cardiovascular: Yes: Regular Rate and Rhythm Respiratory: Yes: Regular, Diminished Gastrointestinal: Yes: Normal Bowel Sounds, Soft Edema: No Labs: CBC, BMP 07/17/18 07:00 07/17/18 07:00 INR, PTT INR 1.16 (0.83-1.09) H 07/13/18 18:44 - ....Imaging Chest X-ray: Pending, Image Reviewed Problem List - Problems (1) TIA (transient ischemic attack) Code(s): G45.9 - TRANSIENT CEREBRAL ISCHEMIC ATTACK, UNSPECIFIED (2) Hypertensive cardiomyopathy Code(s): I11.9 - HYPERTENSIVE HEART DISEASE WITHOUT HEART FAILURE; I43 - CARDIOMYOPATHY IN DISEASES CLASSIFIED ELSEWHERE Qualifiers: Heart failure presence: without heart failure Qualified Code(s): I11.9 - Hypertensive heart disease without heart failure; I43 - Cardiomyopathy in diseases classified elsewhere (3) Anemia requiring transfusions Code(s): D64.9 - ANEMIA, UNSPECIFIED (4) GIB (gastrointestinal bleeding) Code(s): K92.2 - GASTROINTESTINAL HEMORRHAGE, UNSPECIFIED Qualifiers: GI bleed type/associated pathology: unspecified gastrointestinal hemorrhage type Qualified Code(s): K92.2 - Gastrointestinal hemorrhage, unspecified Assessment/Plan 1. Severe acute on chronic anemia with underlying Vitamin B12 deficiency anemia , r/o GI source 2. Dementia 3. COPD 4. HLD 5. HTN 6. TIA with residual deficits P:1. Continue Toprol 12.5 qd, Lipitor 80 qd, DAPT for TIA prophylaxis held for now, monitor Hgb post-transfusion 2. Resumed Lasix 40 qd, BD, O2 as needed 3. Patient may proceed with EGD/colonoscopy from CV-standpoint given absence of symptoms of acute coronary syndrome, decompensated CHF or maliganant arrhythmia 4. Protonix per GI
--- NOTE | 2018-07-17 18:52 | CON.PSY ---
Psychiatry Consult Chief Complaint: 78 year old male admitted from [facility] with a very low blood count. patient apparantly refusing Colonoscopy. Patient is pleasantly confused nd unable to recall. Symptoms: reports: Memory Impairment - Previous Psychiatric Treatment Outpatient: None Inpatient: None - Previous Substance Abuse Treatment Outpatient: None Inpatient: None - Current Medications Current Medications: Active Medications Albuterol Sulfate (Ventolin 0.083% Nebulizer Soln -) 1 amp NEB Q6H PRN PRN Reason: SHORT OF BREATH/WHEEZING Atorvastatin Calcium (Lipitor -) 80 mg PO HS [facility] Last Admin: 07/16/18 22:45 Dose: 80 mg Docusate Sodium (Colace -) 100 mg PO TID [facility] Last Admin: 07/17/18 14:48 Dose: 100 mg Furosemide (Lasix -) 40 mg PO DAILY [facility] Last Admin: 07/17/18 14:48 Dose: 40 mg Metoprolol Succinate (Toprol Xl -) 12.5 mg PO DAILY [facility] Last Admin: 07/17/18 08:59 Dose: 12.5 mg Pantoprazole Sodium (Protonix -) 40 mg PO BID [facility] Last Admin: 07/17/18 10:18 Dose: Not Given Polyethylene Glycol (Miralax (For Daily Use) -) 17 gm PO DAILY [facility] Last Admin: 07/17/18 08:59 Dose: 17 gm Potassium Chloride (K-Dur -) 20 meq PO DAILY [facility] Last Admin: 07/17/18 08:59 Dose: 20 meq Senna (Senna -) 2 tab PO HS PRN PRN Reason: CONSTIPATION Last Admin: 07/16/18 22:45 Dose: 2 tab - Allergies Allergies: Allergies Allergy/AdvReac Type Severity Reaction Status Date / Time No Known Allergies Allergy Verified 07/13/18 17:47 - Current Living Status Usual Living Arrangement: Halfway - Current Mental Status Evaluation Appearance: Well Groomed Attitude: Cooperative - Affect Affect: Constrictive Appropriateness: Not Appropriate - Mood Mood: Euthymic - Speech/Language Expressive: Delayed - Psychomotor Activity Psychomotor Activity: Slowed - Thought Process Thought Process: Circumstantial - Thought Content Hallucinations: Absent Delusions: Absent - Self Perception Self Perception: No Impairment - Cognition Attention: Diminished Memory, Immediate Recall: Impaired Memory, Short Term: 1/3 Memory, Remote with Promptin/3 - Concentration Serial Sevens Intact: No Simple Calculations Intact: No - Abstraction Proverb Interpretation: Impaired Judgement: Minimally Impaired - Insight Insight: Impaired - Impulse Control Impulse Control: Good Control - Suicidal Ideation Suicidal Ideation: No - Homicidal Ideation Homicidal Ideation: No Assessment/Plan 1) Patient lacks functional capacity to make informed medical decisions at this time, due to Dementia.
[2018-07-17] MEDS: ATORVASTATIN CA 80 MG TABLET (FP) PO SCH (22:23)
[2018-07-18] MEDS: metoPROLOL SUCCINATE 25 MG TAB.SR.24H (FP) PO SCH (09:42)
[2018-07-18] MEDS: POTASSIUM CHLORIDE TABS 20 MEQ TABLET.ER (FP) PO SCH (09:42)
[2018-07-18] MEDS: PANTOPRAZOLE 40 MG TABLET (FP) PO SCH ×2 (09:42→21:25)
[2018-07-18] MEDS: FUROSEMIDE 40 MG TABLET (FP) PO SCH (09:42)
[2018-07-18] MEDS: POLYETHYLENE GLYCOL 3350 119 GM BTL PO SCH (09:43)
--- NOTE | 2018-07-18 12:06 | PN ---
Progress Note (short form) - Note Progress Note: S/P PRBC events noted no complaints no bleeding in stool no abd pain awake and alert-confused Vital Signs - 24 hr 07/17/18 07/17/18 07/17/18 15:03 18:47 20:26 Temperature 98.4 F 99 F Pulse Rate 56 L 60 Respiratory 20 Rate Blood Pressure 147/92 115/64 O2 Sat by Pulse 97 Oximetry (%) 07/18/18 07/18/18 07/18/18 02:00 05:54 10:00 Temperature 98.7 F 98.6 F 97.8 F Pulse Rate 51 L 54 L 52 L Respiratory 20 20 20 Rate Blood Pressure 138/66 139/78 119/63 O2 Sat by Pulse Oximetry (%) Current Medications Generic Name Dose Route Start Last Admin Trade Name Freq PRN Reason Stop Dose Admin Albuterol Sulfate 1 amp 07/15/18 12:52 Ventolin 0.083% Nebulizer Soln - NEB Q6H PRN SHORT OF BREATH/WHEEZING Atorvastatin Calcium 80 mg 07/14/18 22:00 07/17/18 22:23 Lipitor - PO 80 mg HS [facility] Administration Docusate Sodium 100 mg 07/13/18 22:00 07/17/18 22:24 Colace - PO 100 mg TID [facility] Administration Furosemide 40 mg 07/17/18 13:30 07/18/18 09:42 Lasix - PO 40 mg DAILY [facility] Administration Metoprolol Succinate 12.5 mg 07/14/18 10:00 07/18/18 09:42 Toprol Xl - PO 12.5 mg DAILY [facility] Administration Pantoprazole Sodium 40 mg 07/17/18 10:00 07/18/18 09:42 Protonix - PO 40 mg BID [facility] Administration Polyethylene Glycol 17 gm 07/13/18 22:00 07/18/18 09:43 Miralax (For Daily Use) - PO 17 gm DAILY [facility] Administration Potassium Chloride 20 meq 07/15/18 13:15 07/18/18 09:42 K-Dur - PO 20 meq DAILY [facility] Administration Senna 2 tab 07/13/18 21:56 07/16/18 22:45 Senna - PO 2 tab HS PRN Administration CONSTIPATION Laboratory Results - last 24 hr 07/13/18 18:00 Blood Type O POSITIVE Antibody Screen Negative Crossmatch See Detail S1 S2 RRR No pallor Lungs clear Abd- soft, NT trace edema PLAN transfuse as needed Psych eval noted-- pt lacks capcaity to make decisions [facility] had given me pt's case manager specialist number- Coy Toledo- [phone]- he was his previous case manager specialist when he was staying in [facility] prior to [facility] , he does not want to give any consents. He told me that pt apparently has a daughter somewhere but does not know the information I spoke with GI-- will have risk management get involved if H/HCT stable , will plan on discharging pt back to [place] and have him consult GI as outpt for endoscopic procedures as pt is not actively bleeding Problem List - Problems (1) Anemia Code(s): D64.9 - ANEMIA, UNSPECIFIED Qualifiers: Anemia type: unspecified type Qualified Code(s): D64.9 - Anemia, unspecified (2) Anemia requiring transfusions Code(s): D64.9 - ANEMIA, UNSPECIFIED (3) Dementia Code(s): F03.90 - UNSPECIFIED DEMENTIA WITHOUT BEHAVIORAL DISTURBANCE (4) GIB (gastrointestinal bleeding) Code(s): K92.2 - GASTROINTESTINAL HEMORRHAGE, UNSPECIFIED Qualifiers: GI bleed type/associated pathology: unspecified gastrointestinal hemorrhage type Qualified Code(s): K92.2 - Gastrointestinal hemorrhage, unspecified
[2018-07-18] MEDS: DOCUSATE SODIUM 100 MG CAPSULE (FP) PO SCH ×2 (14:44→21:25)
--- NOTE | 2018-07-18 15:13 | ECHO ---
Name: ELEONORA APONTE Exam:Adult Echocardiogram Study Date: 07/18/2018 09:58 AM Age: 78 yrs Reason For Study: CHF Height: 78 in Weight: 183 lb BSA: 2.2 m2 MMode/2D Measurements & Calculations IVSd: 1.0 cm Ao root diam: 3.7 cm LVIDd: 5.1 cm LA dimension: 3.0 cm LVIDs: 3.1 cm LVPWd: 1.0 cm EDV(Teich): 122.1 ml LAV (MOD-bp): 67.7 ml ESV(Teich): 38.8 ml Doppler Measurements & Calculations MV E max cecilia: 99.9 cm/sec MV A max cecilia: 83.4 cm/sec MV dec slope: 848.1 cm/sec2 MV E/A: 1.2 AI P1/2t: 684.2 msec AI max cecilia: 429.4 cm/sec AI max P.7 mmHg AI dec slope: 183.8 cm/sec2 MR max cecilia: 520.2 cm/sec TR max cecilia: 290.5 cm/sec MR max P.8 mmHg TR max P.8 mmHg Med Peak E' Cecilia: 6.4 cm/sec PI Vmax: 214.5 cm/sec Med E/e': 15.6 Lat Peak E' Cecilia: 11.2 cm/sec Lat E/e': 8.9 Procedure A two-dimensional transthoracic echocardiogram with color flow and Doppler was performed. The patient was in normal sinus rhythm during the exam. Left Ventricle The left ventricular size, thickness and function are normal. Ejection Fraction = 60-65%. Right Ventricle The right ventricle is normal in size and function. Atria Normal left and right atrial size and function. Mitral Valve The mitral valve is grossly normal. There is mild mitral regurgitation. Tricuspid Valve The tricuspid valve is not well visualized, but is grossly normal. There is trace tricuspid regurgita tion. There was insufficient TR detected to calculate RV systolic pressure. Aortic Valve The aortic valve is trileaflet. There is mild aortic sclerosis.;. The aortic valve opens well. No hemodynamically significant valvular aortic stenosis. Mild aortic regurgitation. Pulmonic Valve The pulmonic valve is not well visualized. Great Vessels The aortic root is normal size. Pericardium/Pleura There is no pericardial effusion. Interpretation Summary The left ventricular size, thickness and function are normal Normal left and right atrial size and function. There is mild mitral regurgitation. There is trace tricuspid regurgitation. No hemodynamically significant valvular aortic stenosis. Mild aortic regurgitation. There was insufficient TR detected to calculate RV systolic pressure. MD Davy Calvillo 07/18/2018 03:13 PM
[2018-07-18] MEDS: ATORVASTATIN CA 80 MG TABLET (FP) PO SCH (21:25)
[2018-07-19 07:24] LABS: HEMATOCRIT 28.1 % (35.4-49); HEMOGLOBIN 8.9 GM/dL (11.7-16.9); MCH 22.6 pg (25.7-33.7); MCHC 31.8 g/dl (32.0-35.9); MEAN CELL VOLUME 71.2 fl (80-96); MEAN PLT VOLUME 8.6 fl (7.5-11.1); PLATELET COUNT 254 K/MM3 (134-434); RBC 3.95 M/mm3 (4.00-5.60); RDW 29.7 % (11.9-15.9); WHITE BLOOD COUNT 5.5 K/mm3 (4.0-10.0)
[2018-07-19] MEDS ORDERED: PT OWN MED DRAWER 7, Y5N ONE (10:33)
[2018-07-19] MEDS: POTASSIUM CHLORIDE TABS 20 MEQ TABLET.ER (FP) PO SCH (10:38)
[2018-07-19] MEDS: metoPROLOL SUCCINATE 25 MG TAB.SR.24H (FP) PO SCH (10:38)
[2018-07-19] MEDS: PANTOPRAZOLE 40 MG TABLET (FP) PO SCH (10:39)
[2018-07-19] MEDS: FUROSEMIDE 40 MG TABLET (FP) PO SCH (10:39)
--- NOTE | 2018-07-19 11:12 | DS ---
Physical Examination Vital Signs: Vital Signs Temperature 98.0 F 07/19/18 09:11 Pulse Rate 55 L 07/19/18 09:11 Respiratory Rate 18 07/19/18 09:11 Blood Pressure 129/76 07/19/18 09:11 O2 Sat by Pulse Oximetry (%) 96 07/19/18 09:00 Constitutional: Yes: No Distress, Calm Cardiovascular: Yes: Regular Rate and Rhythm Respiratory: Yes: CTA Bilaterally Gastrointestinal: Yes: Normal Bowel Sounds, Soft. No: Tenderness Edema: Yes Edema: LLE: 1+, RLE: 1+ Labs: CBC, BMP 07/19/18 07:00 07/17/18 07:00 Discharge Summary Reason For Visit: TRANSFUSION-DEPENDENT ANEMIA, LEUKOPENIA Current Active Problems Anemia (Acute) Anemia requiring transfusions (Acute) Dementia (Acute) GIB (gastrointestinal bleeding) (Acute) Hypertensive cardiomyopathy (Acute) Leukopenia (Acute) Occult blood positive stool (Acute) TIA (transient ischemic attack) (Acute) Hospital Course: Admitted for acute severe anemia Was on ASA and Plavix for TIA ( previous history) Pt was transfused total of 4 units PRBCS pt tolerated it well No SOB Stool occult blood positive seen by GI and Cardiology Pt is cleared cardiac puri to undergo any GI procedures Pt is not actively bleeding now He is better I spoke with GI yesterday, pt was refusing colonoscopy- GI will not do any interventions once we have consent from family as he has a daughter in the community but her whereabouts are unknown Psych eval-- pt lack capacity to make any decisions due to dementia Risk management notified here As pt is not actively bleeding and his HCT is stable, will dc pt back to [facility] Will need to follow Hb /HCT Should have risk management /social service liaison in [place] try to contact daughter , if unable, then may do 2 Physician consent for GI interventions as outpt will dc to NH Condition: Stable - Instructions Diet, Activity, Other Instructions: weekly CBC HI evaluation for EGD and colonoscopy social service liaison evaluation and risk management for finding out pt's family for consent Referrals: Juan C Johnson MD [Primary Care Provider] - [facility]position: [facility] - Home Medications Comprehensive Discharge Medication List: Ambulatory Orders Acetaminophen 325 mg PO Q6H PRN 07/13/18 Atorvastatin Ca [Lipitor] 80 mg PO HS 07/13/18 Cyanocobalamin Vit B-12 Inj. [Vitamin B12 Injection -] 1,000 units IM MONTHLY Ergocalciferol [Vitamin D2] 50,000 unit PO WEEKLY 07/13/18 Ipratropium/Albuterol Sulfate [Iprat-Albut 0.5-3(2.5) mg/3 ml] 3 ml IH Q4H PRN 07/13/18 Metoprolol Succinate 12.5 mg PO DAILY 07/13/18 Pantoprazole Sodium 40 mg PO DAILY 07/13/18 Docusate Sodium [Colace -] 100 mg PO TID #60 capsule 07/19/18 Furosemide [Lasix -] 40 mg PO DAILY #30 tablet 07/19/18 Potassium Chloride [K-Dur -] 20 meq PO DAILY #30 tablet.er 07/19/18
[2018-07-19 13:56] VITALS: BP 110/54; PULSE 64; TEMP 98.4
== END 2018-07-19 17:08 | DRG 378 ==
LOC: JER 17:39 → JERBED 19:20 → J6S 23:52
PROVIDERS: ADMIT Internal Medicine; ATTEND Internal Medicine
PROC: 30233N1 Transfusion of Nonautologous Red Blood Cells into Peripheral Vein, Percutaneous Approach (ICD-10-PCS; principal; 2018-07-13)
DX: K92.2 Gastrointestinal hemorrhage, unspecified (principal); I42.9 Cardiomyopathy, unspecified; D64.9 Anemia, unspecified; F03.90 Unspecified dementia, unspecified severity, without behavioral disturbance, psychotic disturbance, mood disturbance, and anxiety; J44.9 Chronic obstructive pulmonary disease, unspecified; E78.5 Hyperlipidemia, unspecified; I10 Essential (primary) hypertension; K21.9 Gastro-esophageal reflux disease without esophagitis; Z87.891 Personal history of nicotine dependence; D72.819 Decreased white blood cell count, unspecified; E53.8 Deficiency of other specified B group vitamins
CPT/HCPCS: 36415; 36430; 71045-TC-FY; 80053; 80061; 82272; 83721; 83880; 84443; 84484; 85025; 85027; 85610; 85730; 86850; 86900; 86901; 86922; 93005; 93010; 93306-TC; 97116-GP; 97161-GP; 99283-25; P9038; P9058

== ENCOUNTER → 2018-09-13 | Day surgery (SDC) | payer OTHER ==
[2018-09-12 16:21] VITALS: BMI 19.1
[~2018-09-13] MED LIST: PROPOFOL 20 ML ONE
[2018-09-13 13:42] VITALS: TEMP 97.7
[2018-09-13 14:09] VITALS: BP 135/91; PULSE 68
--- NOTE | 2018-09-15 15:31 | PATH ---
Surgical Pathology Report Patient Name: ELEONORA APONTE [facility]. Rec. #: [id number] /Age/Gender: 1940 (Age: 78) / M Account: [id number] Location: [facility] Taken: 09/13/2018 Received: 09/13/2018 Reported: 09/15/2018 Physicians: Ursula Leonard M.D. Specimen(s) Received A: SECOND PORTION DUODENUM B: BX GASTRIC ANTRUM C: BX GE JUNCTION Clinical History Anemia Postoperative diagnosis: Gastritis Final Diagnosis A. SECOND PORTION OF DUODENUM, BIOPSY: DUODENAL MUCOSA WITH NO PATHOLOGIC FINDINGS. B. GASTRIC ANTRUM, BIOPSY: MILD CHRONIC GASTRITIS. IMMUNOSTAIN IS NEGATIVE FOR H. PYLORI ORGANISMS. C. GE JUNCTION, BIOPSY: HYPERPLASTIC ESOPHAGEAL (SQUAMOUS) MUCOSA WITH FEW INTRAEPITHELIAL EOSINOPHILS, CONSISTENT WITH REFLUX ESOPHAGITIS. NO COLUMNAR EPITHELIUM/INTESTINAL METAPLASIA IS IDENTIFIED. Electronically Signed Nellie Hammond M.D. Gross Description A. Received in formalin, labeled "biopsy second portion of duodenum" is a coles, irregular portion of soft tissue measuring 0.4 cm. in greatest dimension. The specimen is submitted in toto in one cassette. B. Received in formalin, labeled "biopsy gastric antrum" is a coles, irregular portion of soft tissue measuring 0.3 cm. in greatest dimension. The specimen is submitted in toto in one cassette. C. Received in formalin, labeled "biopsy GE junction" is a coles, irregular portion of soft tissue measuring 0.4 cm. in greatest dimension. The specimen is submitted in toto in one cassette. 09/14/2018 saudi09/14/2018
== END | disposition home or self-care (01) ==
LOC: FASU-ENDO 09:37
PROVIDERS: ATTEND Internal Medicine Gastroenterology
PROC: 0DB48ZX Excision of Esophagogastric Junction, Via Natural or Artificial Opening Endoscopic, Diagnostic (ICD-10-PCS; 2018-09-13)
PROC: 0DB98ZX Excision of Duodenum, Via Natural or Artificial Opening Endoscopic, Diagnostic (ICD-10-PCS; principal; 2018-09-13 13:04)
PROC: 0DB68ZX Excision of Stomach, Via Natural or Artificial Opening Endoscopic, Diagnostic (ICD-10-PCS; 2018-09-13 13:04)
DX: D64.9 Anemia, unspecified (principal); K29.50 Unspecified chronic gastritis without bleeding; K21.0 Gastro-esophageal reflux disease with esophagitis
CPT/HCPCS: 88305-TC; 88342-TC

== ENCOUNTER 2018-10-02 10:29 | Inpatient (IN) | payer OTHER ==
--- NOTE | 2018-10-02 11:02 | PDOC ---
History of Present Illness - General Chief Complaint: Lightheaded Stated Complaint: VOMITING,DIZZINESS Time Seen by Provider: 10/02/18 11:02 - History of Present Illness Initial Comments: 10/02/18 11:02 Mr. Jarvis is a 78 yo male w/ pmh dementia, COPD, B12 deficiency anemia, HLD, HTN, GERD, TIA w/ deficits who presents for evaluation of nausea and vomiting today. Patient reports he feels fine now however had 3 episodes of vomiting earlier today. The patient denies chest pain, shortness of breath, headache and dizziness. Denies fever, chills, diarrhea and constipation. Denies dysuria, frequency, urgency and hematuria. Past History - Past Medical History Allergies/Adverse Reactions: Allergies Allergy/AdvReac Type Severity Reaction Status Date / Time No Known Allergies Allergy Verified 10/02/18 10:58 Home Medications: Ambulatory Orders Acetaminophen 325 mg PO Q6H PRN 07/13/18 Cyanocobalamin Vit B-12 Inj. [Vitamin B12 Injection -] 1,000 units IM MONTHLY Ergocalciferol [Vitamin D2] 50,000 unit PO WEEKLY 07/13/18 Ipratropium/Albuterol Sulfate [Iprat-Albut 0.5-3(2.5) mg/3 ml] 3 ml IH Q4H PRN 07/13/18 Metoprolol Succinate 25 mg PO DAILY 07/13/18 Pantoprazole Sodium 40 mg PO DAILY 07/13/18 Furosemide [Lasix -] 40 mg PO DAILY #30 tablet 07/19/18 Potassium Chloride [K-Dur -] 20 meq PO DAILY #30 tablet.er 07/19/18 Atorvastatin Ca [Lipitor] 10 mg PO HS 09/12/18 Docusate Sodium [Colace -] 300 mg PO DAILY 09/12/18 Ferrous Sulfate [Iron] 325 mg PO DAILY 09/12/18 Anemia: Yes (vit b 12 deficiency,) Asthma: No Cancer: No Cardiac Disorders: No CVA: Yes (TIA w/o residuals) COPD: Yes CHF: No Dementia: Yes Diabetes: No GI Disorders: Yes (gerd) Disorders: Yes (incontinent) HTN: Yes Hypercholesterolemia: Yes Liver Disease: No Seizures: No Thyroid Disease: No - Immunization History Immunization Up to Date: No - Suicide/Smoking/Psychosocial Hx Smoking History: Unknown if ever smoked Have you smoked in the past 12 months: No Information on smoking cessation initiated: No Hx Alcohol Use: No Drug/Substance Use Hx: No Substance Use Type: None Review of Systems - Review of Systems Comments:: 10/02/18 11:02 GENERAL/CONSTITUTIONAL: No fever or chills. No weakness. HEAD, EYES, EARS, NOSE AND THROAT: No change in vision. No ear pain or discharge. No sore throat. CARDIOVASCULAR: No chest pain or shortness of breath RESPIRATORY: No cough, wheezing, or hemoptysis. GASTROINTESTINAL: +N/V as described. No diarrhea or constipation. GENITOURINARY: No dysuria, frequency, or change in urination. MUSCULOSKELETAL: No joint or muscle swelling or pain. No neck or back pain. SKIN: No rash NEUROLOGIC: No headache, vertigo, loss of consciousness, or change in strength/ sensation. ENDOCRINE: No increased thirst. No abnormal weight change HEMATOLOGIC/LYMPHATIC: No anemia, easy bleeding, or history of blood clots. ALLERGIC/IMMUNOLOGIC: No hives or skin allergy. *Physical Exam - Vital Signs Last Vital Signs Temp Pulse Resp BP Pulse Ox 98.0 F 89 16 157/99 100 10/02/18 10:30 10/02/18 10:30 10/02/18 10:30 10/02/18 10:30 10/02/18 10:30 - Physical Exam Comments: 10/02/18 11:02 GENERAL: Awake, alert, and fully oriented, in no acute distress HEAD: No signs of trauma, normocephalic, atraumatic EYES: PERRLA, EOMI, sclera anicteric, conjunctiva clear ENT: Auricles normal inspection, hearing grossly normal, nares patent, oropharynx clear without exudates. Moist mucosa NECK: Normal ROM, supple, no lymphadenopathy, JVD, or masses LUNGS: No distress, speaks full sentences, clear to auscultation bilaterally HEART: Regular rate and rhythm, normal S1 and S2, no murmurs, rubs or gallops, peripheral pulses normal and equal bilaterally. ABDOMEN: +Abdomen rigid, nontender, normoactive bowel sounds. No guarding, no rebound. No masses EXTREMITIES: Normal inspection, Normal range of motion, no edema. No clubbing or cyanosis. NEUROLOGICAL: Cranial nerves II through XII grossly intact. Normal speech, normal gait, no focal sensorimotor deficits SKIN: Warm, Dry, normal turgor, no rashes or lesions noted. ED Treatment Course - LABORATORY CBC & Chemistry Diagram: 10/02/18 11:43 10/02/18 11:43 Medical Decision Making - Medical Decision Making 10/02/18 15:21 Mr. Jarvis is a 78 yo male w/ pmh as described who presents for evaluation of n/v w/ additional abdominal findings noted on exam of rigidity. This prompted CT scan of abdomen/pelvis which revealed SBO with transition point in upper pelvis. Surgery consulted and patient pre-op labs added. Patient will be admitted to hospitalist for further care. Laboratory Results - last 24 hr 10/02/18 10/02/18 11:43 11:43 WBC 6.0 RBC 4.28 Hgb 11.0 L Hct 34.7 L D MCV 80.9 D MCH 25.7 D MCHC 31.8 L RDW 28.8 H Plt Count 231 MPV 8.9 Absolute Neuts (auto) 5.0 Neutrophils % 82.6 D Lymphocytes % 14.3 D Monocytes % 2.7 L Eosinophils % 0.1 D Basophils % 0.3 Nucleated RBC % 0 Sodium 138 Potassium 3.6 Chloride 108 H Carbon Dioxide 22 Anion Gap 7 L BUN 17 Creatinine 1.0 Creat Clearance w eGFR 72.65 Random Glucose 105 Calcium 9.2 Total Bilirubin 0.6 AST 20 ALT 22 Alkaline Phosphatase 127 H Creatine Kinase 68 Troponin I < 0.02 Total Protein 8.8 H Albumin 3.5 *DC/Admit/Observation/Transfer Diagnosis at time of Disposition: SBO (small bowel obstruction) - Discharge Dispostion Decision to Admit order: Yes - Referrals Referrals: Juan C Johnson MD [Primary Care Provider] - - Patient Instructions - Post Discharge Activity
[2018-10-02] MEDS ORDERED: SODIUM CHLORIDE 1,000 ML IV STA (11:21)
[2018-10-02] MEDS ORDERED: ONDANSETRON 4 MG/2 ML VIAL IVPUSH ONE (11:21)
--- NOTE | 2018-10-02 11:35 | PDOC ---
Attending Attestation - Resident Resident Name: Osmin Bautista - ED Attending Attestation I have performed the following: I have examined & evaluated the patient, The case was reviewed & discussed with the resident, I agree w/resident's findings & plan, Exceptions are as noted - HPI HPI: 78 yo M dementia, COPD, B12 deficiency anemia, HLD, HTN, GERD, and TIA presents with vomiting multiple times today. He has also been expectorating sputum, unclear if this is chronic or new. He states he has not been feeling well for 2 weeks now. Denies f/c, abd pain, diarrhea. +Diffuse weakness. - Physicial Exam PE: GENERAL: Awake, alert, and fully oriented, in no acute distress HEAD: No signs of trauma EYES: PERRLA, EOMI, sclera anicteric, conjunctiva clear ENT: Auricles normal inspection, hearing grossly normal, nares patent, oropharynx clear without exudates. Dry mucosa NECK: Normal ROM, supple, no lymphadenopathy, JVD, or masses LUNGS: Breath sounds equal, clear to auscultation bilaterally. No wheezes, and no crackles HEART: Regular rate and rhythm, normal S1 and S2, no murmurs, rubs or gallops ABDOMEN: Slightly distended, firm, nontender, normoactive bowel sounds. No guarding, no rebound. No masses EXTREMITIES: Normal range of motion, no edema. No clubbing or cyanosis. No cords, erythema, or tenderness NEUROLOGICAL: Cranial nerves II through XII grossly intact. Normal speech with hoarse voice. Motor and sensation intact SKIN: Warm, Dry, normal turgor, no rashes or lesions noted. - Medical Decision Making Pt noted to have firm abdomen, and he states he has been sick for [address] a/p to further evaluate. Labs to check for leukocytosis, electrolytes. CXR r/o pna, as he is expectorating intermittently in ED and it is not clear if this is chronic or new.
[2018-10-02] MEDS ORDERED: ONDANSETRON 4 MG/2 ML VIAL ONE (11:48)
[2018-10-02 11:56] LABS: BASO % 0.3 % (0-2.0); EOS % 0.1 % (0-4.5); HEMATOCRIT 34.7 % (35.4-49); LYMPH % 14.3 % (8-40); MCH 25.7 pg (25.7-33.7); MCHC 31.8 g/dl (32.0-35.9); MEAN CELL VOLUME 80.9 fl (80-96); MEAN PLT VOLUME 8.9 fl (7.5-11.1); MONO % 2.7 % (3.8-10.2); NEUT % 82.6 % (42.8-82.8); PLATELET COUNT 231 K/MM3 (134-434); RBC 4.28 M/mm3 (4.00-5.60); RDW 28.8 % (11.9-15.9)
[2018-10-02 12:30] LABS: ALBUMIN 3.5 g/dl (3.4-5.0); ALK PHOS 127 U/L (45-117); ANION GAP 7 MMOL/L (8-16); BILIRUBIN,TOTAL 0.6 mg/dL (0.2-1); BLOOD UREA NITROGEN 17 mg/dL (7-18); CALCIUM 9.2 mg/dL (8.5-10.1); CHLORIDE 108 mmol/L (98-107); CO2 22 mmol/L (21-32); GLUCOSE,RANDOM 105 mg/dL (74-106); POTASSIUM 3.6 mmol/L (3.5-5.1); SGOT/AST 20 U/L (15-37); SGPT/ALT 22 U/L (13-61); SODIUM 138 mmol/L (136-145); TOT PROT 8.8 g/dl (6.4-8.2)
--- NOTE | 2018-10-02 15:09 | EKG ---
Test Reason : Blood Pressure : / mmHG Vent. Rate : 090 BPM Atrial Rate : 090 BPM P-R Int : 180 ms QRS Dur : 076 ms QT Int : 380 ms P-R-T Axes : 080 -23 022 degrees QTc Int : 464 ms NORMAL SINUS RHYTHM RIGHT ATRIAL ENLARGEMENT NONSPECIFIC ST AND T WAVE ABNORMALITY ABNORMAL ECG WHEN COMPARED WITH ECG OF 14-JUL-2018 13:17, VENT. RATE HAS INCREASED BY 37 BPM BASELINE ARTIFACT Confirmed by FABY IBARRA, ROBERTH ([id number]) on 10/02/2018 3:09:29 PM Referred By: Confirmed By:ROBERTH HOBBS MD
--- NOTE | 2018-10-02 16:18 | CONSULT ---
Consult Consult Specialty:: General Surgery Reason for Consultation:: SBO - History of Present Illness Chief Complaint: nausea and vomiting History of Present Illness: 78 yo male PMH dementia, COPD, B12 deficiency anemia, HLD, HTN, GERD, TIA w/ deficits who presents for evaluation of nausea and vomiting today. Patient reports he feels fine now however had 3 episodes of vomiting earlier today. he had 3 loose bowel movements yesterday after admission. NGT out put has been scant. Abdominal xray show less bowel distension. we were called to assess. 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 Cardio/Vascular: Yes: Hyperlipdemia Pulmonary: Yes: COPD Gastrointestinal: Yes: GERD - Alcohol/Substance Use Hx Alcohol Use: No - Smoking History Smoking history: Unknown if ever smoked Have you smoked in the past 12 months: No - Social History Usual Living Arrangement: Prison ADL: Support Services History of Recent Travel: No Home Medications - Allergies Allergies/Adverse Reactions: Allergies Allergy/AdvReac Type Severity Reaction Status Date / Time No Known Allergies Allergy Verified 10/02/18 10:58 - Home Medications Home Medications: Ambulatory Orders Acetaminophen 325 mg PO Q6H PRN 07/13/18 Cyanocobalamin Vit B-12 Inj. [Vitamin B12 Injection -] 1,000 units IM MONTHLY Ergocalciferol [Vitamin D2] 50,000 unit PO WEEKLY 07/13/18 Ipratropium/Albuterol Sulfate [Iprat-Albut 0.5-3(2.5) mg/3 ml] 3 ml IH Q4H PRN 07/13/18 Metoprolol Succinate 25 mg PO DAILY 07/13/18 Pantoprazole Sodium 40 mg PO DAILY 07/13/18 Furosemide [Lasix -] 40 mg PO DAILY #30 tablet 07/19/18 Potassium Chloride [K-Dur -] 20 meq PO DAILY #30 tablet.er 07/19/18 Atorvastatin Ca [Lipitor] 10 mg PO HS 09/12/18 Docusate Sodium [Colace -] 300 mg PO DAILY 09/12/18 Ferrous Sulfate [Iron] 325 mg PO DAILY 09/12/18 Review of Systems - Review of Systems Constitutional: denies: Chills, Fever Eyes: denies: Blind Spots, Blurred Vision, Recent Change in Vision HENT: denies: Difficult Swallowing, Ear Discharge, Throat Pain Neck: denies: Decreased ROM, Pain on Movement, Tenderness Cardiovascular: denies: Chest Pain, Palpitations Respiratory: denies: Cough, SOB Gastrointestinal: reports: Abdominal Pain, Bloating, Diarrhea, Vomiting Genitourinary: denies: Discharge, Dysuria, Flank Pain Breasts: reports: No Symptoms Reported. denies: Pain Musculoskeletal: denies: Back Pain, Crepitus Integumentary: denies: Eczema, Erythema Neurological: denies: Seizure, Syncope Endocrine: denies: Unexplained Weight Gain, Unexplained Weight Loss Hematology/Lymphatic: denies: Easily Bruised, Excessive Bleeding Psychiatric: denies: Anxiety, Depression Physical Exam Vital Signs: Vital Signs Temperature 98.0 F 10/02/18 10:30 Pulse Rate 89 10/02/18 10:30 Respiratory Rate 16 10/02/18 10:30 Blood Pressure 157/99 10/02/18 10:30 O2 Sat by Pulse Oximetry (%) 100 10/02/18 10:30 Vital Signs Period Temp Pulse Resp BP Sys/Bocanegra Pulse Ox Last 24 Hr 98.4 F-98.7 F 64-94 19-21 131-148/68-98 94-100 Intake & Output 10/02/18 10/03/18 10/03/18 23:59 07:59 15:59 Intake Total 250 550 0 Balance 250 550 0 Weight 169 lb 8 oz 170 lb 1 oz Intake: IV 500 Lactated Ringers Solution 500 1,000 ml @ 42 mls/hr IV ASDIR ADRI Rx#:[id number] IVPB 250 50 Oral 0 Other: Voiding Method Diaper Incontinent # Unmeasured Voids Void 1 Bowel Movement Yes Yes # Bowel Movements 1 1 Height 6 ft Body Mass Index (BMI) 22.9 Weight Measurement Method Built in [facility] Built in [facility] Constitutional: Yes: Well Nourished, No Distress Eyes: Yes: Conjunctiva Clear, EOM Intact HENT: Yes: Atraumatic, Normocephalic Neck: Yes: Supple, Trachea Midline Cardiovascular: Yes: Regular Rate and Rhythm, S1, S2 Respiratory: Yes: Regular, CTA Bilaterally Gastrointestinal: Yes: Normal Bowel Sounds, Soft, Distention. No: Tenderness, Tenderness, Epigastrium, Tenderness, Rebound ...Rectal Exam: Yes: Sphincter Tone Normal. No: Hemorrhoids/External, Inflammation, Mass Renal/: No: CVA Tenderness - Left, CVA Tenderness - Right Breast(s): No: Discharge from Nipple, Nipple Inversion Musculoskeletal: No: Muscle Pain, Muscle Weakness Extremities: No: Cool, Cyanosis Edema: No Peripheral Pulses WNL: Yes Integumentary: No: Onychomycosis, Venous Stasis Changes Wound/Incision: Yes: Clean/Dry, Well Approximated Neurological: Yes: Alert, Confusion. No: Oriented Psychiatric: Yes: Alert. No: Oriented Labs: CBC, BMP 10/02/18 11:43 10/02/18 11:43 Imaging - Results X-ray: Report Reviewed, Image Reviewed Cat Scan: Report Reviewed, Image Reviewed Problem List - Problems (1) SBO (small bowel obstruction) Assessment/Plan: 78 yo male with MMP with Nausea and vomiting, CT abdomen interpreted as a SBO, this is partial SBO clinically, possible distal obstruction . NPO and IVF hydration NGT decompression serial abdominal Xrays +/- empiric antibiotics GI consult for colonoscopy will follow Thank you for the opportunity to participate in the care of this patient. Code(s): K56.609 - UNSP INTESTNL OBST, UNSP TO PARTIAL VERSUS COMPLETE OBST (2) COPD (chronic obstructive pulmonary disease) Code(s): J44.9 - CHRONIC OBSTRUCTIVE PULMONARY DISEASE, UNSPECIFIED (3) Hyperlipidemia Code(s): E78.5 - HYPERLIPIDEMIA, UNSPECIFIED (4) Anemia Code(s): D64.9 - ANEMIA, UNSPECIFIED Qualifiers: Anemia type: unspecified type Qualified Code(s): D64.9 - Anemia, unspecified (5) GIB (gastrointestinal bleeding) Code(s): K92.2 - GASTROINTESTINAL HEMORRHAGE, UNSPECIFIED Qualifiers: GI bleed type/associated pathology: unspecified gastrointestinal hemorrhage type Qualified Code(s): K92.2 - Gastrointestinal hemorrhage, unspecified (6) TIA (transient ischemic attack) Code(s): G45.9 - TRANSIENT CEREBRAL ISCHEMIC ATTACK, UNSPECIFIED
[2018-10-02] MEDS ORDERED: ALBUTEROL SO4 2.5/IPRATROPIUM 0.5 INH SOL 3 ML VIAL.NEB. NEB PRN (18:03)
[2018-10-02 18:11] LABS: INR 1.13 (0.83-1.09); PROTHROMBIN TIME (PATIENT) 13.4 SEC (9.7-13.0)
[2018-10-02 18:14] LABS: ACTIVATED PTT 33.6 SECONDS (25.2-36.5)
[2018-10-02] MEDS ORDERED: POTASSIUM CHLORIDE 20 MEQ PREMIX IVPB 100 ML IVPB ONE (18:45)
[2018-10-02 20:29] VITALS: BMI 22.9
[2018-10-02 21:19] LABS: URINE APPEARANCE CLEAR; URINE BILIRUBIN NEGATIVE (NEGATIVE); URINE COLOR YELLOW; URINE GLUCOSE (UA) NEGATIVE (NEGATIVE); URINE KETONE TRACE (NEGATIVE)
[2018-10-02 21:20] LABS: URINE LEUK ESTERASE 2+ (NEGATIVE); URINE NITRITE POSITIVE (NEGATIVE); URINE PROTEIN NEGATIVE (NEGATIVE)
[2018-10-02] MEDS: LACTATED RINGERS SOLUTION 1,000 ML IV SCH (21:20)
[2018-10-02] MEDS: KCL 10 MEQ IVPB 10 MEQ/100 ML INFUS.BAG IVPB SCH ×2 (21:21→22:32)
[2018-10-02 21:45] LABS: URINE RBC LARGE /hpf (0-4)
[2018-10-02 21:46] LABS: URINE BACTERIA 3+ /hpf (NEGATIVE); URINE WBC MODERATE /hpf (0-5)
[2018-10-02] MEDS ORDERED: ENOXAPARIN NA (PORCINE) 120 MG/0.8 ML DISP.SYRIN SQ SCH (22:00)
--- NOTE | 2018-10-02 22:16 | HP ---
Admitting History and Physical - Primary Care Physician PCP: Juan C Johnson - Admission Chief Complaint: generalized weakness History of Present Illness: 78 year old man with a significant PMH of Vitamin B12 deficiency anemia, Dementia, COPD, HLD, HTN, GERD, TIA with residual deficits, and osteoporosis, who presents to the ER today from [facility] for malaise and vomiting. Patient has dementia and is a poor historian, but medical records from [place] reveal new onset headache, vomiting and dizziness on the morning of October 02 which prompted staff to activate transport to ED. Vitals at [facility] prior to transfer: BP 151/98, HR 92bpm, RR 18, T 97.2. In ED: Vitals: BP 157/99, RR 16, T 98.0, HR 89, O2 sat 100% Labs: unremarkable UA: +3 blood, positive nitrite, + 2Leuk. Urine culture sent to lab. No antibiotics dosed On Physical exam, pt noted to have rigid abdomen, which prompted CT scan of abdomen/pelvis which revealed SBO with transition point in upper pelvis. Surgery consulted and NGT placed for decompression. Pt had two large stools in ED. 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 Cardiovascular: Yes: Hyperlipdemia Pulmonary: Yes: COPD Gastrointestinal: Yes: GERD Heme/Onc: Yes: B12 Deficiency - Past Surgical History Past Surgical History: Yes: None - Smoking History Smoking history: Unknown if ever smoked Have you smoked in the past 12 months: No - Alcohol/Substance Use Hx Alcohol Use: No History of Substance Use: reports: None - Social History Usual Living Arrangement: Yes: Alf ADL: Support Services History of Recent Travel: No Home Medications - Allergies Allergies/Adverse Reactions: Allergies Allergy/AdvReac Type Severity Reaction Status Date / Time No Known Allergies Allergy Verified 10/02/18 10:58 - Home Medications Home Medications: Ambulatory Orders Acetaminophen 325 mg PO Q6H PRN 07/13/18 Cyanocobalamin Vit B-12 Inj. [Vitamin B12 Injection -] 1,000 units IM MONTHLY Ergocalciferol [Vitamin D2] 50,000 unit PO WEEKLY 07/13/18 Ipratropium/Albuterol Sulfate [Iprat-Albut 0.5-3(2.5) mg/3 ml] 3 ml IH Q4H PRN 07/13/18 Metoprolol Succinate 25 mg PO DAILY 07/13/18 Pantoprazole Sodium 40 mg PO DAILY 07/13/18 Furosemide [Lasix -] 40 mg PO DAILY #30 tablet 07/19/18 Potassium Chloride [K-Dur -] 20 meq PO DAILY #30 tablet.er 07/19/18 Atorvastatin Ca [Lipitor] 10 mg PO HS 09/12/18 Docusate Sodium [Colace -] 300 mg PO DAILY 09/12/18 Ferrous Sulfate [Iron] 325 mg PO DAILY 09/12/18 Family Disease History - Family Disease History Family History: Unable to Obtain Review of Systems - Review of Systems Constitutional: reports: Weakness Eyes: reports: No Symptoms HENT: reports: No Symptoms Neck: reports: No Symptoms Cardiovascular: reports: No Symptoms Respiratory: reports: No Symptoms Gastrointestinal: reports: Nausea, Vomiting Physical Examination Vital Signs: Vital Signs Temperature 98.5 F 10/02/18 20:22 Pulse Rate 90 10/02/18 20:22 Respiratory Rate 20 10/02/18 20:31 Blood Pressure 135/85 10/02/18 20:22 O2 Sat by Pulse Oximetry (%) 94 L 10/02/18 20:31 Constitutional: Yes: Thin (AAM) Eyes: Yes: Conjunctiva Clear, PERRL HENT: Yes: Atraumatic, Normocephalic Neck: Yes: Supple Cardiovascular: Yes: Regular Rate and Rhythm Respiratory: Yes: Regular, CTA Bilaterally Gastrointestinal: Yes: Distention, Hypoactive Bowel Sounds (tense abdomen) ...Rectal Exam: Yes: Deferred Renal/: Yes: Incontinence (diaper in place, large amout of stool in diaper) Musculoskeletal: Yes: Joint Stiffness, Muscle Weakness Edema: Yes Edema: RLE: 2+ Peripheral Pulses WNL: Yes Peripheral Pulses: Left Radial: 2+, Right Radial: 2+, Left Doralis Pedis: 2+, Right Dorsalis Pedis: 2+ Integumentary: Yes: WNL Neurological: Yes: Confusion, Tremors, Unsteady Gait, Weakness Labs: CBC, BMP 10/02/18 11:43 10/02/18 11:43 Imaging - Results Chest X-ray: Report Reviewed ( CXR 10/02/2018 Impression: No sign of nasogastric tube in the left upper quadrant or thoracic esophagus. Reported By : Swirsky,Hardik MD 10/02/18 1920) Cat Scan: Report Reviewed (Ct abdomen 10/02/2018 IMPRESSION: SMALL BOWEL OBSTRUCTION IS IDENTIFIED WITH A TRANSITION POINT IN THE UPPER PELVIS DISCUSSED ABOVE. THE COLON IS ESSENTIALLY DECOMPRESSED EXCEPT FOR MILDLY DISTENDED REDUNDANT SIGMOID COLON DISCUSSED ABOVE. Additional comments noted above. Reported By: Joseph Brar MD 10/02/18 [id number]) Ultrasound: Report Reviewed (RLE doppler 10/02/2018 Impression: Findings consistent with deep venous thromboses involving the mid and distal right femoral vein as well as the popliteal and posterior tibial vein. Reported By: Dejan Franco MD 10/02/18 [id number]) Other: Report Reviewed (CXR 10/02/2018 Impression: Large heart. Unfolded aorta.distended bowel. Read by Hardik Trejo MD) Problem List - Problems (1) Hyperlipidemia Code(s): E78.5 - HYPERLIPIDEMIA, UNSPECIFIED (2) COPD (chronic obstructive pulmonary disease) Code(s): J44.9 - CHRONIC OBSTRUCTIVE PULMONARY DISEASE, UNSPECIFIED (3) Vitamin B12 deficiency Code(s): E53.8 - DEFICIENCY OF OTHER SPECIFIED B GROUP VITAMINS (4) SBO (small bowel obstruction) Code(s): K56.609 - UNSP INTESTNL OBST, UNSP TO PARTIAL VERSUS COMPLETE OBST (5) Dementia Code(s): F03.90 - UNSPECIFIED DEMENTIA WITHOUT BEHAVIORAL DISTURBANCE (6) Hypertensive cardiomyopathy Code(s): I11.9 - HYPERTENSIVE HEART DISEASE WITHOUT HEART FAILURE; I43 - CARDIOMYOPATHY IN DISEASES CLASSIFIED ELSEWHERE Qualifiers: Heart failure presence: without heart failure Qualified Code(s): I11.9 - Hypertensive heart disease without heart failure; I43 - Cardiomyopathy in diseases classified elsewhere (7) UTI (urinary tract infection) Code(s): N39.0 - URINARY TRACT INFECTION, SITE NOT SPECIFIED (8) Dvt femoral (deep venous thrombosis) Code(s): I82.419 - ACUTE EMBOLISM AND THROMBOSIS OF UNSPECIFIED FEMORAL VEIN Assessment/Plan #SBO surg following NGT for decompression -CXR ordered to confirm placement NPO holding non-essential oral meds LR 42ml/hr serial abd exam repeat flat/upright x-ray in AM #RLE DVT pt with RLE on exam- STAT doppler revealed DVT mid and distal right femoral vein , as well as popliteal and posterior tibial vein start Lovenox 80mcg BID - bleeding precautions #UTI UA with leuk/nitrites/blood/bacteria start Zosyn 3.375gm TID f/u UCX results #HTN Cont home meds: Toprol XL 25mg daily #HLD Cont home meds: Atorvastatin 10 PO HS #COPD Cont home meds: Duonebs Q6hrs #Vitamin B12 deficiency anemia Hold Vitamin B12 injection- restart upon discharge #Osteoporosis Pt takes Vitamin D2 50,000U weekly. May continue as outpatient after discharge. #Hx of TIA neuro exam q4h #Dementia Pt not currently on meds accrording to [place] medication list. pt placed on mittens due to restlessness and attempting to remove NGT #Prophylaxis Protonix 40 mg IVP daily #FEN IVF sodium-controlled puree diet when able to eat dispo -full code -admit to med-surg Visit type - Emergency Visit Emergency Visit: Yes ED Registration Date: 10/02/18 Care time: The patient presented to the Emergency Department on the above date and was hospitalized for further evaluation of their emergent condition. - New Patient This patient is new to me today: Yes Date on this admission: 10/03/18 - Critical Care Critical Care patient: No
[2018-10-02] MEDS: ENOXAPARIN NA (PORCINE) 80 MG/0.8 ML DISP.SYRIN SQ SCH (22:38)
[2018-10-02] MEDS ORDERED: DEXTROSE 5%-WATER - 50 ML IVPB ONE (23:17)
[2018-10-02] MEDS ORDERED: PIPERACILLIN/TAZOBACTAM 3.375 GM VIAL IVPB ONE (23:17)
[2018-10-03] MEDS: PIPERACILLIN/TAZOB 3.375 GM 3.375 GM in DEXTROSE 5%-WATER - 50 ML IVPB SCH ×3 (00:15→17:53)
[2018-10-03] MEDS ORDERED: PIPERACILLIN/TAZOBACTAM 3.375 GM VIAL IVPB ONE ×3 (01:52→17:51)
[2018-10-03] MEDS ORDERED: DEXTROSE 5%-WATER - 50 ML IVPB ONE ×3 (01:53→17:51)
[2018-10-03] MEDS ORDERED: PIPERACILLIN/TAZOB 3.375 GM 3.375 GM in DEXTROSE 5%-WATER - 50 ML IVPB SCH (02:00)
[2018-10-03 07:27] LABS: BASO % 0.2 % (0-2.0); HEMATOCRIT 30.9 % (35.4-49); HEMOGLOBIN 9.9 GM/dL (11.7-16.9); LYMPH % 5.4 % (8-40); MCH 25.9 pg (25.7-33.7); MEAN CELL VOLUME 80.9 fl (80-96); MEAN PLT VOLUME 8.8 fl (7.5-11.1); MONO % 6.1 % (3.8-10.2); NEUT % 88.3 % (42.8-82.8); PLATELET COUNT 202 K/MM3 (134-434); RBC 3.82 M/mm3 (4.00-5.60); RDW 28.7 % (11.9-15.9); WHITE BLOOD COUNT 12.6 K/mm3 (4.0-10.0)
[2018-10-03 08:20] LABS: ALBUMIN 2.7 g/dl (3.4-5.0); ALK PHOS 92 U/L (45-117); AMYLASE 151 U/L (25-115); ANION GAP 9 MMOL/L (8-16); BILIRUBIN,TOTAL 1.4 mg/dL (0.2-1); BLOOD UREA NITROGEN 14 mg/dL (7-18); CALCIUM 8.1 mg/dL (8.5-10.1); CHLORIDE 111 mmol/L (98-107); CO2 21 mmol/L (21-32); CREATININE 1.1 mg/dL (0.55-1.3); GLUCOSE,RANDOM 90 mg/dL (74-106); LIPASE 84 U/L (73-393); PHOSPHOROUS 2.6 mg/dL (2.5-4.9); POTASSIUM 3.2 mmol/L (3.5-5.1); SGOT/AST 21 U/L (15-37); SGPT/ALT 17 U/L (13-61); SODIUM 141 mmol/L (136-145); TOT PROT 6.9 g/dl (6.4-8.2)
[2018-10-03] MEDS ORDERED: PANTOPRAZOLE 40 MG TABLET (FP) PO SCH (10:00)
[2018-10-03] MEDS ORDERED: FUROSEMIDE 40 MG TABLET (FP) PO SCH (10:00)
[2018-10-03] MEDS ORDERED: PT OWN MED DRAWER 7, Y5N ONE (10:20)
[2018-10-03] MEDS: PANTOPRAZOLE SODIUM 40 MG VIAL IVPUSH SCH (10:22)
[2018-10-03] MEDS: ENOXAPARIN NA (PORCINE) 80 MG/0.8 ML DISP.SYRIN SQ SCH ×2 (10:22→21:58)
[2018-10-03] MEDS: POTASSIUM CHLORIDE ORAL LIQUID 20 MEQ/15 ML PO SCH (10:22)
[2018-10-03] MEDS: FUROSEMIDE 40 MG/4 ML INJECTABLE VIAL IVPUSH SCH (10:22)
[2018-10-03] MEDS: metoPROLOL SUCCINATE 25 MG TAB.SR.24H (FP) PO SCH (10:23)
--- NOTE | 2018-10-03 13:44 | CON.ID ---
Consult Consult Specialty:: infectious diseases Referred by:: Dr.Tina Patel Reason for Consultation:: ams,abd pain - History of Present Illness History of Present Illness: 78 year old man with a significant PMH of Vitamin B12 deficiency anemia, Dementia, COPD, HLD, HTN, GERD, TIA with residual deficits, and osteoporosis, who is admitted from [facility] for malaise and vomiting. Patient has dementia and is a poor historian, but medical records from [place] reveal new onset headache, vomiting and dizziness on the morning of October 02 which prompted staff to activate transport to ED. Vitals at [facility] prior to transfer: BP 151/98, HR 92bpm, RR 18, T 97.2. 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 Cardio/Vascular: Yes: Hyperlipdemia Pulmonary: Yes: COPD Gastrointestinal: Yes: GERD - Past Surgical History Past Surgical History: Yes: None - Alcohol/Substance Use Hx Alcohol Use: No History of Substance Use: reports: None - Smoking History Smoking history: Unknown if ever smoked Have you smoked in the past 12 months: No - Social History Usual Living Arrangement: Residential ADL: Support Services History of Recent Travel: No Home Medications - Allergies Allergies/Adverse Reactions: Allergies Allergy/AdvReac Type Severity Reaction Status Date / Time No Known Allergies Allergy Verified 10/02/18 10:58 - Home Medications Home Medications: Ambulatory Orders Acetaminophen 325 mg PO Q6H PRN 07/13/18 Cyanocobalamin Vit B-12 Inj. [Vitamin B12 Injection -] 1,000 units IM MONTHLY Ergocalciferol [Vitamin D2] 50,000 unit PO WEEKLY 07/13/18 Ipratropium/Albuterol Sulfate [Iprat-Albut 0.5-3(2.5) mg/3 ml] 3 ml IH Q4H PRN 07/13/18 Metoprolol Succinate 25 mg PO DAILY 07/13/18 Pantoprazole Sodium 40 mg PO DAILY 07/13/18 Furosemide [Lasix -] 40 mg PO DAILY #30 tablet 07/19/18 Potassium Chloride [K-Dur -] 20 meq PO DAILY #30 tablet.er 07/19/18 Atorvastatin Ca [Lipitor] 10 mg PO HS 09/12/18 Docusate Sodium [Colace -] 300 mg PO DAILY 09/12/18 Ferrous Sulfate [Iron] 325 mg PO DAILY 09/12/18 Review of Systems Unable to obtain ROS, reason: unable to obtain Physical Exam Vital Signs: Vital Signs Temperature 98.6 F 10/03/18 13:06 Pulse Rate 62 10/03/18 13:06 Respiratory Rate 20 10/03/18 08:22 Blood Pressure 122/75 10/03/18 13:06 O2 Sat by Pulse Oximetry (%) 96 10/02/18 22:53 Constitutional: Yes: Well Nourished, Calm, Mild Distress Cardiovascular: Yes: Regular Rate and Rhythm Respiratory: Yes: Regular, CTA Bilaterally Gastrointestinal: Yes: Normal Bowel Sounds, Soft Musculoskeletal: Yes: WNL Extremities: Yes: WNL Neurological: Yes: Alert, Other Psychiatric: Yes: Other Labs: CBC, BMP 10/03/18 06:30 10/03/18 06:30 Imaging - Results Chest X-ray: Report Reviewed, Image Reviewed Cat Scan: Report Reviewed, Image Reviewed Assessment/Plan Problem List - Problems (1) SBO (small bowel obstruction) Assessment/Plan: 78 yo male with MMP with Nausea and vomiting, CT abdomen interpreted as a SBO NPO and IVF hydration NGT Code(s): K56.609 - UNSP INTESTNL OBST, UNSP TO PARTIAL VERSUS COMPLETE OBST (2) COPD (chronic obstructive pulmonary disease) Code(s): J44.9 - CHRONIC OBSTRUCTIVE PULMONARY DISEASE, UNSPECIFIED (3) Hyperlipidemia Code(s): E78.5 - HYPERLIPIDEMIA, UNSPECIFIED (4) Anemia Code(s): D64.9 - ANEMIA, UNSPECIFIED Qualifiers: Anemia type: unspecified type Qualified Code(s): D64.9 - Anemia, unspecified (5) GIB (gastrointestinal bleeding) Code(s): K92.2 - GASTROINTESTINAL HEMORRHAGE, UNSPECIFIED Qualifiers: GI bleed type/associated pathology: unspecified gastrointestinal hemorrhage type Qualified Code(s): K92.2 - Gastrointestinal hemorrhage, unspecified (6) TIA (transient ischemic attack) Code(s): G45.9 - TRANSIENT CEREBRAL ISCHEMIC ATTACK, UNSPECIFIED plan will start patient on abx surgery on case close monitoring iv fluids rest as per the team
--- NOTE | 2018-10-03 14:10 | PN ---
Progress Note (short form) - Note Progress Note: Events noted had a bm today tolerating clears no distress Vital Signs - 24 hr 10/02/18 10/02/18 10/02/18 17:14 20:22 20:31 Temperature 98.4 F 98.5 F Pulse Rate 90 Pulse Rate [ 88 Left Radial] Respiratory 19 20 20 Rate Blood Pressure 135/85 Blood Pressure 145/98 [Right Arm] O2 Sat by Pulse 100 94 L Oximetry (%) 10/02/18 10/03/18 10/03/18 22:53 05:28 08:22 Temperature 98.7 F 98.4 F Pulse Rate 94 H 64 Pulse Rate [ Left Radial] Respiratory 20 21 H 20 Rate Blood Pressure 148/84 131/68 Blood Pressure [Right Arm] O2 Sat by Pulse 96 Oximetry (%) 10/03/18 13:06 Temperature 98.6 F Pulse Rate 62 Pulse Rate [ Left Radial] Respiratory Rate Blood Pressure 122/75 Blood Pressure [Right Arm] O2 Sat by Pulse Oximetry (%) Current Medications Generic Name Dose Route Start Last Admin Trade Name Freq PRN Reason Stop Dose Admin Albuterol/Ipratropium 1 amp 10/02/18 18:03 Duoneb - NEB Q6H PRN Dyspnea Atorvastatin Calcium 10 mg 10/03/18 22:00 Lipitor - PO HS ADRI Enoxaparin Sodium 80 mg 10/02/18 22:30 10/03/18 10:22 Lovenox - 1 mg/kg (80 mg) 80 mg SQ Administration BID ADRI Furosemide 40 mg 10/03/18 10:00 10/03/18 10:22 Lasix Injection - IVPUSH 40 mg DAILY ADRI Administration Lactated Ringer's 1,000 mls @ 42 mls/hr 10/02/18 18:15 10/02/18 21:20 Lactated Ringers Solution IV 42 mls/hr ASDIR ADRI Administration Piperacillin Sod/Tazobactam 50 mls @ 100 mls/hr 10/03/18 02:00 Sod 3.375 gm/ Dextrose IVPB Q8H-IV ADRI Protocol Piperacillin Sod/Tazobactam 50 mls @ 100 mls/hr 10/02/18 23:15 10/03/18 10:24 Sod 3.375 gm/ Dextrose IVPB 10/03/18 18:29 100 mls/hr Q8H-IV ADRI Administration Piperacillin Sod/Tazobactam 50 mls @ 100 mls/hr 10/03/18 13:45 Sod 3.375 gm/ Dextrose IVPB Q8H-IV ADRI Protocol Metoprolol Succinate 25 mg 10/03/18 10:00 10/03/18 10:23 Toprol Xl - PO 25 mg DAILY ADRI Administration Pantoprazole Sodium 40 mg 10/03/18 10:00 10/03/18 10:22 Protonix Iv IVPUSH 40 mg DAILY ADRI Administration Potassium Chloride 20 meq 10/03/18 10:00 10/03/18 10:22 Potassium Chloride Oral Liquid PO 20 meq DAILY ADRI Administration Laboratory Results - last 24 hr 10/02/18 10/02/18 10/02/18 17:00 17:00 17:11 WBC RBC Hgb Hct MCV MCH MCHC RDW Plt Count MPV Absolute Neuts (auto) Neutrophils % Lymphocytes % Monocytes % Eosinophils % Basophils % Nucleated RBC % PT with INR 13.40 H INR 1.13 H PTT (Actin FS) 33.6 Sodium Potassium Chloride Carbon Dioxide Anion Gap BUN Creatinine Creat Clearance w eGFR Random Glucose Calcium Phosphorus Magnesium Total Bilirubin AST ALT Alkaline Phosphatase Total Protein Albumin Total Amylase Lipase TSH Urine Color Yellow Urine Appearance Clear Urine pH 5.0 Ur Specific [place] 1.061 H Urine Protein Negative Urine Glucose (UA) Negative Urine Ketones Trace H Urine Blood 3+ H Urine Nitrite Positive H Urine Bilirubin Negative Urine Urobilinogen 1.0 Ur Leukocyte Esterase 2+ H Urine WBC (Auto) Moderate Urine RBC (Auto) Large Urine Bacteria (Auto) 3+ Blood Type O POSITIVE Antibody Screen Negative 10/03/18 10/03/18 06:30 06:30 WBC 12.6 H RBC 3.82 L Hgb 9.9 L Hct 30.9 L MCV 80.9 MCH 25.9 MCHC 32.0 RDW 28.7 H Plt Count 202 MPV 8.8 Absolute Neuts (auto) 11.1 H Neutrophils % 88.3 H Lymphocytes % 5.4 L D Monocytes % 6.1 D Eosinophils % 0.0 D Basophils % 0.2 Nucleated RBC % 0 PT with INR INR PTT (Actin FS) Sodium 141 Potassium 3.2 L Chloride 111 H Carbon Dioxide 21 Anion Gap 9 BUN 14 Creatinine 1.1 Creat Clearance w eGFR 65.08 Random Glucose 90 Calcium 8.1 L Phosphorus 2.6 Magnesium 2.0 Total Bilirubin 1.4 H AST 21 ALT 17 Alkaline Phosphatase 92 Total Protein 6.9 Albumin 2.7 L Total Amylase 151 H Lipase 84 TSH 0.58 D Urine Color Urine Appearance Urine pH Ur Specific [place] Urine Protein Urine Glucose (UA) Urine Ketones Urine Blood Urine Nitrite Urine Bilirubin Urine Urobilinogen Ur Leukocyte Esterase Urine WBC (Auto) Urine RBC (Auto) Urine Bacteria (Auto) Blood Type Antibody Screen S1 S2 RRR Lungs decreased breath sounds Abd-- mild distension, NT, BS hyperactive No edema PLAN continue with clears pt pulled out NG tube check FUA in Am spoke with ID-- on iv antibiotics for UTI Problem List - Problems (1) COPD (chronic obstructive pulmonary disease) Code(s): J44.9 - CHRONIC OBSTRUCTIVE PULMONARY DISEASE, UNSPECIFIED (2) Hyperlipidemia Code(s): E78.5 - HYPERLIPIDEMIA, UNSPECIFIED (3) SBO (small bowel obstruction) Code(s): K56.609 - UNSP INTESTNL OBST, UNSP TO PARTIAL VERSUS COMPLETE OBST (4) UTI (urinary tract infection) Code(s): N39.0 - URINARY TRACT INFECTION, SITE NOT SPECIFIED (5) Anemia Code(s): D64.9 - ANEMIA, UNSPECIFIED Qualifiers: Anemia type: unspecified type Qualified Code(s): D64.9 - Anemia, unspecified
[2018-10-03] MEDS: ATORVASTATIN CA 10 MG TABLET (FP) PO SCH (21:59)
[2018-10-04] MEDS ORDERED: PIPERACILLIN/TAZOBACTAM 3.375 GM VIAL IVPB ONE ×3 (01:50→17:16)
[2018-10-04] MEDS ORDERED: DEXTROSE 5%-WATER - 50 ML IVPB ONE ×3 (01:51→17:16)
[2018-10-04] MEDS: PIPERACILLIN/TAZOB 3.375 GM 3.375 GM in DEXTROSE 5%-WATER - 50 ML IVPB SCH ×3 (01:57→17:23)
[2018-10-04] MEDS: LACTATED RINGERS SOLUTION 1,000 ML IV SCH ×2 (01:58→20:51)
[2018-10-04 07:18] LABS: BASO % 0.6 % (0-2.0); EOS % 2.9 % (0-4.5); HEMATOCRIT 29.5 % (35.4-49); HEMOGLOBIN 9.5 GM/dL (11.7-16.9); LYMPH % 17.5 % (8-40); MCH 25.7 pg (25.7-33.7); MEAN CELL VOLUME 80.1 fl (80-96); MEAN PLT VOLUME 8.5 fl (7.5-11.1); MONO % 13.7 % (3.8-10.2); NEUT % 65.3 % (42.8-82.8); PLATELET COUNT 185 K/MM3 (134-434); RBC 3.69 M/mm3 (4.00-5.60); RDW 28.3 % (11.9-15.9); WHITE BLOOD COUNT 5.9 K/mm3 (4.0-10.0)
[2018-10-04 07:47] LABS: ALBUMIN 2.7 g/dl (3.4-5.0); ALK PHOS 77 U/L (45-117); ANION GAP 6 MMOL/L (8-16); BILIRUBIN,TOTAL 1.1 mg/dL (0.2-1); BLOOD UREA NITROGEN 14 mg/dL (7-18); CALCIUM 7.9 mg/dL (8.5-10.1); CHLORIDE 110 mmol/L (98-107); CO2 26 mmol/L (21-32); CREATININE 1.2 mg/dL (0.55-1.3); GLUCOSE,RANDOM 75 mg/dL (74-106); SGOT/AST 20 U/L (15-37); SGPT/ALT 17 U/L (13-61); SODIUM 142 mmol/L (136-145); TOT PROT 6.5 g/dl (6.4-8.2)
[2018-10-04] MEDS ORDERED: PT OWN MED DRAWER 7, Y5N ONE (10:01)
[2018-10-04] MEDS: FUROSEMIDE 40 MG/4 ML INJECTABLE VIAL IVPUSH SCH (10:06)
[2018-10-04] MEDS: metoPROLOL SUCCINATE 25 MG TAB.SR.24H (FP) PO SCH (10:06)
[2018-10-04] MEDS: POTASSIUM CHLORIDE ORAL LIQUID 20 MEQ/15 ML PO SCH (10:06)
[2018-10-04] MEDS: ENOXAPARIN NA (PORCINE) 80 MG/0.8 ML DISP.SYRIN SQ SCH (10:06)
[2018-10-04] MEDS: PANTOPRAZOLE SODIUM 40 MG VIAL IVPUSH SCH (10:06)
--- NOTE | 2018-10-04 11:55 | PN ---
Progress Note, Physician History of Present Illness: patient stable looks more comfortable today - Current Medication List Current Medications: Active Medications Albuterol/Ipratropium (Duoneb -) 1 amp NEB Q6H PRN PRN Reason: Dyspnea Atorvastatin Calcium (Lipitor -) 10 mg PO HS [facility] Last Admin: 10/03/18 21:59 Dose: 10 mg Enoxaparin Sodium (Lovenox -) 80 mg 1 mg/kg (80 mg) SQ BID [facility] Last Admin: 10/04/18 10:06 Dose: 80 mg Furosemide (Lasix Injection -) 40 mg IVPUSH DAILY [facility] Last Admin: 10/04/18 10:06 Dose: 40 mg Lactated Ringer's (Lactated Ringers Solution) 1,000 mls @ 42 mls/hr IV ASDIR [facility] Last Admin: 10/04/18 01:58 Dose: 42 mls/hr Piperacillin Sod/Tazobactam (Sod 3.375 gm/ Dextrose) 50 mls @ 100 mls/hr IVPB Q8H-IV [facility]; Protocol Last Admin: 10/04/18 10:06 Dose: 100 mls/hr Metoprolol Succinate (Toprol Xl -) 25 mg PO DAILY [facility] Last Admin: 10/04/18 10:06 Dose: 25 mg Pantoprazole Sodium (Protonix Iv) 40 mg IVPUSH DAILY [facility] Last Admin: 10/04/18 10:06 Dose: 40 mg Potassium Chloride (Potassium Chloride Oral Liquid) 20 meq PO DAILY [facility] Last Admin: 10/04/18 10:06 Dose: 20 meq - Objective Vital Signs: Vital Signs Temperature 97.9 F 10/04/18 09:00 Pulse Rate 55 L 10/04/18 09:00 Respiratory Rate 18 10/04/18 09:00 Blood Pressure 140/94 10/04/18 09:00 O2 Sat by Pulse Oximetry (%) 96 10/04/18 09:00 Constitutional: Yes: No Distress, Calm Cardiovascular: Yes: Regular Rate and Rhythm Respiratory: Yes: Regular, CTA Bilaterally Gastrointestinal: Yes: Soft, Hypoactive Bowel Sounds Musculoskeletal: Yes: WNL Extremities: Yes: WNL Neurological: Yes: Alert, Oriented Labs: CBC, BMP 10/04/18 06:30 10/04/18 06:30 INR, PTT INR 1.13 (0.83-1.09) H 10/02/18 17:11 - ....Imaging X-ray: Report Reviewed, Image Reviewed Assessment/Plan Problem List - Problems (1) SBO (small bowel obstruction) Assessment/Plan: 78 yo male with MMP with Nausea and vomiting, CT abdomen interpreted as a SBO NPO and IVF hydration NGT Code(s): K56.609 - UNSP INTESTNL OBST, UNSP TO PARTIAL VERSUS COMPLETE OBST (2) COPD (chronic obstructive pulmonary disease) Code(s): J44.9 - CHRONIC OBSTRUCTIVE PULMONARY DISEASE, UNSPECIFIED (3) Hyperlipidemia Code(s): E78.5 - HYPERLIPIDEMIA, UNSPECIFIED (4) Anemia Code(s): D64.9 - ANEMIA, UNSPECIFIED Qualifiers: Anemia type: unspecified type Qualified Code(s): D64.9 - Anemia, unspecified (5) GIB (gastrointestinal bleeding) Code(s): K92.2 - GASTROINTESTINAL HEMORRHAGE, UNSPECIFIED Qualifiers: GI bleed type/associated pathology: unspecified gastrointestinal hemorrhage type Qualified Code(s): K92.2 - Gastrointestinal hemorrhage, unspecified (6) TIA (transient ischemic attack) Code(s): G45.9 - TRANSIENT CEREBRAL ISCHEMIC ATTACK, UNSPECIFIED plan continue abx close monitoring rest as per the team surgery
--- NOTE | 2018-10-04 12:40 | PN ---
Progress Note, Physician Chief Complaint: SBO History of Present Illness: 78 yo male PMH dementia, COPD, B12 deficiency anemia, HLD, HTN, GERD, TIA w/ deficits who presents for evaluation of nausea and vomiting. He has been tolerating diet. But may need a colonoscopy to exclude a colonic source of bleeding and or malignancy. - Current Medication List Current Medications: Active Medications Albuterol/Ipratropium (Duoneb -) 1 amp NEB Q6H PRN PRN Reason: Dyspnea Atorvastatin Calcium (Lipitor -) 10 mg PO HS [facility] Last Admin: 10/03/18 21:59 Dose: 10 mg Enoxaparin Sodium (Lovenox -) 80 mg 1 mg/kg (80 mg) SQ BID [facility] Last Admin: 10/04/18 10:06 Dose: 80 mg Furosemide (Lasix Injection -) 40 mg IVPUSH DAILY [facility] Last Admin: 10/04/18 10:06 Dose: 40 mg Lactated Ringer's (Lactated Ringers Solution) 1,000 mls @ 42 mls/hr IV ASDIR [facility] Last Admin: 10/04/18 01:58 Dose: 42 mls/hr Piperacillin Sod/Tazobactam (Sod 3.375 gm/ Dextrose) 50 mls @ 100 mls/hr IVPB Q8H-IV [facility]; Protocol Last Admin: 10/04/18 10:06 Dose: 100 mls/hr Metoprolol Succinate (Toprol Xl -) 25 mg PO DAILY [facility] Last Admin: 10/04/18 10:06 Dose: 25 mg Pantoprazole Sodium (Protonix Iv) 40 mg IVPUSH DAILY [facility] Last Admin: 10/04/18 10:06 Dose: 40 mg Potassium Chloride (Potassium Chloride Oral Liquid) 20 meq PO DAILY [facility] Last Admin: 10/04/18 10:06 Dose: 20 meq - Objective Vital Signs: Vital Signs Temperature 97.9 F 10/04/18 09:00 Pulse Rate 55 L 10/04/18 09:00 Respiratory Rate 18 10/04/18 09:00 Blood Pressure 140/94 10/04/18 09:00 O2 Sat by Pulse Oximetry (%) 96 10/04/18 09:00 Constitutional: Yes: No Distress, Calm, Thin Eyes: Yes: Conjunctiva Clear, EOM Intact HENT: Yes: Atraumatic, Normocephalic Neck: Yes: Supple, Trachea Midline Cardiovascular: Yes: Regular Rate and Rhythm, S1, S2 Respiratory: Yes: Regular, CTA Bilaterally Gastrointestinal: Yes: Normal Bowel Sounds, Soft. No: Rectal Bleeding, Tenderness, Tenderness, Epigastrium, Tenderness, Rebound ...Rectal Exam: Yes: Sphincter Tone Normal. No: Hemorrhoids/External, Hemorrhoids/Internal, Mass Genitourinary: No: CVA Tenderness - Left, CVA Tenderness - Right Breast(s): No: Nipple Inversion, Skin Changes Musculoskeletal: No: Muscle Pain, Muscle Weakness Extremities: No: Cool, Cyanosis Edema: No Peripheral Pulses WNL: Yes Peripheral Pulses: Left Radial: 2+, Right Radial: 2+, Left Doralis Pedis: 2+, Right Dorsalis Pedis: 2+, Left Femoral: 2+, Right Femoral: 2+ Integumentary: No: Jaundice, Laceration Neurological: Yes: Alert, Confusion. No: Oriented Psychiatric: Yes: Alert. No: Oriented Labs: CBC, BMP 10/04/18 06:30 10/04/18 06:30 INR, PTT INR 1.13 (0.83-1.09) H 10/02/18 17:11 Problem List - Problems (1) SBO (small bowel obstruction) Assessment/Plan: 78 yo male with MMP with Nausea and vomiting, CT abdomen interpreted as a SBO, this is partial SBO clinically, possible distal obstruction . GI evaluation for colonoscopy was met with resistance from patient (who is demented) no listed next of kin. I am concerned that there is a colon lesion with potential for bleeding or complete obstruction. Perhaps a barium enema could help clarify. NPO and IVF hydration Diet as tolerated send CEA screening Barium enema arrange for colonoscopy [facility] after identifying a person capable of consent Code(s): K56.609 - UNSP INTESTNL OBST, UNSP TO PARTIAL VERSUS COMPLETE OBST (2) COPD (chronic obstructive pulmonary disease) Code(s): J44.9 - CHRONIC OBSTRUCTIVE PULMONARY DISEASE, UNSPECIFIED (3) Hyperlipidemia Code(s): E78.5 - HYPERLIPIDEMIA, UNSPECIFIED (4) Anemia Code(s): D64.9 - ANEMIA, UNSPECIFIED Qualifiers: Anemia type: unspecified type Qualified Code(s): D64.9 - Anemia, unspecified (5) GIB (gastrointestinal bleeding) Code(s): K92.2 - GASTROINTESTINAL HEMORRHAGE, UNSPECIFIED Qualifiers: GI bleed type/associated pathology: unspecified gastrointestinal hemorrhage type Qualified Code(s): K92.2 - Gastrointestinal hemorrhage, unspecified (6) TIA (transient ischemic attack) Code(s): G45.9 - TRANSIENT CEREBRAL ISCHEMIC ATTACK, UNSPECIFIED
--- NOTE | 2018-10-04 14:29 | PN ---
Progress Note (short form) - Note Progress Note: Events noted had a bm today tolerating diet no vomiting or abd pain no distress Vital Signs - 24 hr 10/03/18 10/03/18 10/04/18 17:20 21:00 05:00 Temperature 98.7 F 98.8 F 98.0 F Pulse Rate 66 63 63 Respiratory 18 18 Rate Blood Pressure 119/83 139/77 137/89 O2 Sat by Pulse 95 Oximetry (%) 10/04/18 10/04/18 09:00 13:43 Temperature 97.9 F Pulse Rate 55 L 95 H Respiratory 18 Rate Blood Pressure 140/94 117/80 O2 Sat by Pulse 96 Oximetry (%) Current Medications Generic Name Dose Route Start Last Admin Trade Name Freq PRN Reason Stop Dose Admin Albuterol/Ipratropium 1 amp 10/02/18 18:03 Duoneb - NEB Q6H PRN Dyspnea Atorvastatin Calcium 10 mg 10/03/18 22:00 10/03/18 21:59 Lipitor - PO 10 mg HS ADRI Administration Enoxaparin Sodium 80 mg 10/02/18 22:30 10/04/18 10:06 Lovenox - 1 mg/kg (80 mg) 80 mg SQ Administration BID ADRI Furosemide 40 mg 10/03/18 10:00 10/04/18 10:06 Lasix Injection - IVPUSH 40 mg DAILY ADRI Administration Lactated Ringer's 1,000 mls @ 42 mls/hr 10/02/18 18:15 10/04/18 01:58 Lactated Ringers Solution IV 42 mls/hr ASDIR ADRI Administration Piperacillin Sod/Tazobactam 50 mls @ 100 mls/hr 10/03/18 18:00 10/04/18 10:06 Sod 3.375 gm/ Dextrose IVPB 100 mls/hr Q8H-IV ADRI Administration Protocol Metoprolol Succinate 25 mg 10/03/18 10:00 10/04/18 10:06 Toprol Xl - PO 25 mg DAILY ADRI Administration Pantoprazole Sodium 40 mg 10/03/18 10:00 10/04/18 10:06 Protonix Iv IVPUSH 40 mg DAILY ADRI Administration Potassium Chloride 20 meq 10/03/18 10:00 10/04/18 10:06 Potassium Chloride Oral Liquid PO 20 meq DAILY ADRI Administration Laboratory Results - last 24 hr 10/04/18 10/04/18 06:30 06:30 WBC 5.9 RBC 3.69 L Hgb 9.5 L Hct 29.5 L MCV 80.1 MCH 25.7 MCHC 32.0 RDW 28.3 H Plt Count 185 MPV 8.5 Absolute Neuts (auto) 3.9 Neutrophils % 65.3 D Lymphocytes % 17.5 D Monocytes % 13.7 H D Eosinophils % 2.9 D Basophils % 0.6 Nucleated RBC % 0 Sodium 142 Potassium 3.0 L Chloride 110 H Carbon Dioxide 26 Anion Gap 6 L BUN 14 Creatinine 1.2 Creat Clearance w eGFR 58.86 Random Glucose 75 Calcium 7.9 L Total Bilirubin 1.1 H AST 20 ALT 17 Alkaline Phosphatase 77 Total Protein 6.5 Albumin 2.7 L S1 S2 RRR Lungs decreased breath sounds Abd-- mild distension, NT, BS hyperactive No edema PLAN continue with diet dc iv fluids FUA noted change Lovenox to PO franco spoke with ID-- on iv antibiotics for UTI Problem List - Problems (1) COPD (chronic obstructive pulmonary disease) Code(s): J44.9 - CHRONIC OBSTRUCTIVE PULMONARY DISEASE, UNSPECIFIED (2) Hyperlipidemia Code(s): E78.5 - HYPERLIPIDEMIA, UNSPECIFIED (3) SBO (small bowel obstruction) Code(s): K56.609 - UNSP INTESTNL OBST, UNSP TO PARTIAL VERSUS COMPLETE OBST (4) UTI (urinary tract infection) Code(s): N39.0 - URINARY TRACT INFECTION, SITE NOT SPECIFIED (5) Anemia Code(s): D64.9 - ANEMIA, UNSPECIFIED Qualifiers: Anemia type: unspecified type Qualified Code(s): D64.9 - Anemia, unspecified (6) Dvt femoral (deep venous thrombosis) Code(s): I82.419 - ACUTE EMBOLISM AND THROMBOSIS OF UNSPECIFIED FEMORAL VEIN
[2018-10-04] MEDS ORDERED: POTASSIUM CHLORIDE ORAL LIQUID 20 MEQ/15 ML PO ONE (14:30)
[2018-10-04] MEDS: ATORVASTATIN CA 10 MG TABLET (FP) PO SCH (22:48)
[2018-10-04] MEDS: APIXABAN 5 MG TABLET PO SCH (22:48)
[2018-10-05] MEDS ORDERED: DEXTROSE 5%-WATER - 50 ML IVPB ONE (02:33)
[2018-10-05] MEDS ORDERED: PIPERACILLIN/TAZOBACTAM 3.375 GM VIAL IVPB ONE (02:33)
[2018-10-05] MEDS: PIPERACILLIN/TAZOB 3.375 GM 3.375 GM in DEXTROSE 5%-WATER - 50 ML IVPB SCH (02:52)
[2018-10-05 07:52] LABS: CALCIUM 7.9 mg/dL (8.5-10.1); MAGNESIUM 1.8 mg/dL (1.8-2.4)
[2018-10-05 08:46] LABS: POTASSIUM 2.9 mmol/L (3.5-5.1)
--- NOTE | 2018-10-05 09:39 | PN ---
Progress Note, Physician History of Present Illness: looking much better no new issues feels better - Current Medication List Current Medications: Active Medications Albuterol/Ipratropium (Duoneb -) 1 amp NEB Q6H PRN PRN Reason: Dyspnea Apixaban (Eliquis -) 10 mg PO BID [facility] Last Admin: 10/04/18 22:48 Dose: 10 mg Atorvastatin Calcium (Lipitor -) 10 mg PO HS ADRI Last Admin: 10/04/18 22:48 Dose: 10 mg Furosemide (Lasix -) 40 mg PO DAILY [facility] Piperacillin Sod/Tazobactam (Sod 3.375 gm/ Dextrose) 50 mls @ 100 mls/hr IVPB Q8H-IV ADRI; Protocol Last Admin: 10/05/18 02:52 Dose: 100 mls/hr Metoprolol Succinate (Toprol Xl -) 25 mg PO DAILY [facility] Last Admin: 10/04/18 10:06 Dose: 25 mg Pantoprazole Sodium (Protonix -) 40 mg PO DAILY [facility] Potassium Chloride (Potassium Chloride Oral Liquid) 20 meq PO DAILY [facility] Last Admin: 10/04/18 10:06 Dose: 20 meq - Objective Vital Signs: Vital Signs Temperature 98.1 F 10/05/18 06:08 Pulse Rate 69 10/05/18 06:08 Respiratory Rate 18 10/05/18 06:08 Blood Pressure 133/65 10/05/18 06:08 O2 Sat by Pulse Oximetry (%) 96 10/04/18 21:00 Constitutional: Yes: No Distress, Calm Cardiovascular: Yes: Regular Rate and Rhythm Respiratory: Yes: Regular, CTA Bilaterally Gastrointestinal: Yes: Normal Bowel Sounds, Soft Musculoskeletal: Yes: WNL Extremities: Yes: WNL Neurological: Yes: Alert, Oriented Psychiatric: Yes: Alert, Oriented Labs: CBC, BMP 10/04/18 06:30 10/05/18 06:10 INR, PTT INR 1.13 (0.83-1.09) H 10/02/18 17:11 Assessment/Plan Problem List - Problems (1) SBO (small bowel obstruction) Assessment/Plan: 78 yo male with MMP with Nausea and vomiting, CT abdomen interpreted as a SBO NPO and IVF hydration NGT Code(s): K56.609 - UNSP INTESTNL OBST, UNSP TO PARTIAL VERSUS COMPLETE OBST (2) COPD (chronic obstructive pulmonary disease) Code(s): J44.9 - CHRONIC OBSTRUCTIVE PULMONARY DISEASE, UNSPECIFIED (3) Hyperlipidemia Code(s): E78.5 - HYPERLIPIDEMIA, UNSPECIFIED (4) Anemia Code(s): D64.9 - ANEMIA, UNSPECIFIED Qualifiers: Anemia type: unspecified type Qualified Code(s): D64.9 - Anemia, unspecified (5) GIB (gastrointestinal bleeding) Code(s): K92.2 - GASTROINTESTINAL HEMORRHAGE, UNSPECIFIED Qualifiers: GI bleed type/associated pathology: unspecified gastrointestinal hemorrhage type Qualified Code(s): K92.2 - Gastrointestinal hemorrhage, unspecified (6) TIA (transient ischemic attack) Code(s): G45.9 - TRANSIENT CEREBRAL ISCHEMIC ATTACK, UNSPECIFIED plan will stop abx and monitor how the patient does rest as per the team
[2018-10-05] MEDS ORDERED: PT OWN MED DRAWER 7, Y5N ONE (10:19)
[2018-10-05] MEDS: APIXABAN 5 MG TABLET PO SCH ×2 (10:38→21:35)
[2018-10-05] MEDS: PANTOPRAZOLE 40 MG TABLET (FP) PO SCH (10:39)
[2018-10-05] MEDS: POTASSIUM CHLORIDE ORAL LIQUID 20 MEQ/15 ML PO SCH (10:39)
[2018-10-05] MEDS: FUROSEMIDE 40 MG TABLET (FP) PO SCH (10:39)
[2018-10-05] MEDS: metoPROLOL SUCCINATE 25 MG TAB.SR.24H (FP) PO SCH (10:39)
[2018-10-05] MEDS ORDERED: POTASSIUM CHLORIDE TABS 20 MEQ TABLET.ER (FP) PO ONE ×2 (11:05)
--- NOTE | 2018-10-05 13:15 | DS ---
Physical Examination Vital Signs: Vital Signs Temperature 98.1 F 10/05/18 06:08 Pulse Rate 69 10/05/18 06:08 Respiratory Rate 18 10/05/18 06:08 Blood Pressure 133/65 10/05/18 06:08 O2 Sat by Pulse Oximetry (%) 96 10/04/18 21:00 Constitutional: Yes: No Distress, Calm Cardiovascular: Yes: Regular Rate and Rhythm Respiratory: Yes: CTA Bilaterally Gastrointestinal: Yes: Normal Bowel Sounds, Soft. No: Tenderness Edema: No Labs: CBC, BMP 10/04/18 06:30 10/05/18 06:10 Discharge Summary Reason For Visit: SMALL BOWEL OBSTRUCTION Current Active Problems COPD (chronic obstructive pulmonary disease) (Acute) Dvt femoral (deep venous thrombosis) (Acute) Hyperlipidemia (Acute) SBO (small bowel obstruction) (Acute) UTI (urinary tract infection) (Acute) Vitamin B12 deficiency (Acute) Hospital Course: Admitted for vomiting , rt leg edema CT abd- showed SBO pt pulled out NG tube Pt was seen by Surgery-- no SBO has redundant sigmoid on FUA xray Pt had previous EGD done -- will need colonoscopy Pt was also seen by ID for UTI-- started on iv antibiotics-- dc today pt is afebrile potassium was 2.9 today-- received total of 80meq of Kdur had loose stools yesterday-- none today stable for dc to NH Condition: Improved - Instructions Referrals: Ursula Leonard DO [Staff Physician] - Disposition: [facility] - Home Medications Comprehensive Discharge Medication List: Ambulatory Orders Acetaminophen 325 mg PO Q6H PRN 07/13/18 Cyanocobalamin Vit B-12 Inj. [Vitamin B12 Injection -] 1,000 units IM MONTHLY Ergocalciferol [Vitamin D2] 50,000 unit PO WEEKLY 07/13/18 Ipratropium/Albuterol Sulfate [Iprat-Albut 0.5-3(2.5) mg/3 ml] 3 ml IH Q4H PRN 07/13/18 Metoprolol Succinate 25 mg PO DAILY 07/13/18 Pantoprazole Sodium 40 mg PO DAILY 07/13/18 Furosemide [Lasix -] 40 mg PO DAILY #30 tablet 07/19/18 Potassium Chloride [K-Dur -] 20 meq PO DAILY #30 tablet.er 07/19/18 Atorvastatin Ca [Lipitor] 10 mg PO HS 09/12/18 Docusate Sodium [Colace -] 300 mg PO DAILY 09/12/18 Ferrous Sulfate [Iron] 325 mg PO DAILY 09/12/18
--- NOTE | 2018-10-05 15:20 | CON.GI ---
Consult Consult Specialty:: GI Referred by:: Dr. Lucille Madrid Reason for Consultation:: Anemia - History of Present Illness Chief Complaint: Admitted from NH: treated for partial SBO History of Present Illness: 78M admitted from [facility] for evaluation of vomiting and abdominal pain. Evaluated by surgery and treated for partial small bowel obstruction. Asked to evaluate for colonoscopy. I evaluated him in 07/18 for anemia and discussed EGD/ Colonoscopy with him,. he stated that he would think about it at that time and I questioned his ability to give informed consent. It appears as though he was seen by Dr. Leonard as an outpatient and she performed unreevaling EGD 09/13/18. He currently denies any abdominal pain. there has been no further vomiting. He denies rectal bleeding. 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 History of Recent Travel: No Home Medications - Allergies Allergies/Adverse Reactions: Allergies Allergy/AdvReac Type Severity Reaction Status Date / Time No Known Allergies Allergy Verified 10/02/18 10:58 - Home Medications Home Medications: Ambulatory Orders Acetaminophen 325 mg PO Q6H PRN 07/13/18 Cyanocobalamin Vit B-12 Inj. [Vitamin B12 Injection -] 1,000 units IM MONTHLY Ergocalciferol [Vitamin D2] 50,000 unit PO WEEKLY 07/13/18 Ipratropium/Albuterol Sulfate [Iprat-Albut 0.5-3(2.5) mg/3 ml] 3 ml IH Q4H PRN 07/13/18 Metoprolol Succinate 25 mg PO DAILY 07/13/18 Pantoprazole Sodium 40 mg PO DAILY 07/13/18 Furosemide [Lasix -] 40 mg PO DAILY #30 tablet 07/19/18 Potassium Chloride [K-Dur -] 20 meq PO DAILY #30 tablet.er 07/19/18 Atorvastatin Ca [Lipitor] 10 mg PO HS 09/12/18 Docusate Sodium [Colace -] 300 mg PO DAILY 09/12/18 Ferrous Sulfate [Iron] 325 mg PO DAILY 09/12/18 Apixaban [Eliquis -] 10 mg PO BID #60 tablet 10/05/18 Family Disease History - Family Disease History Family History: Unable to Obtain Review of Systems - Review of Systems Constitutional: denies: Chills, Fever Cardiovascular: denies: Chest Pain Respiratory: denies: SOB Physical Exam-GI Vital Signs: Vital Signs Temperature 97.7 F 10/05/18 10:00 Pulse Rate 86 10/05/18 10:00 Respiratory Rate 18 10/05/18 10:00 Blood Pressure 128/68 10/05/18 10:00 O2 Sat by Pulse Oximetry (%) 96 10/05/18 09:00 Constitutional: Yes: Calm Eyes: No: Sclera Icterus Cardiovascular: Yes: Regular Rate and Rhythm. No: Murmur Respiratory: Yes: Diminished (at bases, poor insp effort) Gastrointestinal Inspection: Yes: Scars (scar in ruq (from fall in childhood)) ...Auscultate: Yes: Normoactive Bowel Sounds ...Palpate: No: Tenderness ...Percussion: Yes: Tympanitic (mildly tympanitic, mid abdomen) ...Rectal Exam: Yes: Other (No external lesions, no masses, light coles stool, guaiac negative) Edema: No (No LE edema) Neurological: Yes: Alert Labs: CBC, BMP 10/04/18 06:30 10/05/18 06:10 INR, PTT INR 1.13 (0.83-1.09) H 10/02/18 17:11 Hepatic Panel Total Bilirubin 1.1 mg/dL (0.2-1) H 10/04/18 06:30 AST 20 U/L (15-37) 10/04/18 06:30 ALT 17 U/L (13-61) 10/04/18 06:30 Alkaline Phosphatase 77 U/L (45-117) 10/04/18 06:30 Albumin 2.7 g/dl (3.4-5.0) L 10/04/18 06:30 Problem List - Problems (1) Anemia Assessment/Plan: Discussed CT scan findings (? thickened rectum) and finding oif anemia with Matheus. Explained that to evaluate further and exclude colon polyps, bleeding blood vessels, tumors such as colon cancer, colonoscopy could be performed. He stated "nah, I will think about it". I advise that follow-up with Dr. Leonard be arranged to discuss further as an outpatient. D/W Dr. Madrid Code(s): D64.9 - ANEMIA, UNSPECIFIED Qualifiers: Anemia type: unspecified type Qualified Code(s): D64.9 - Anemia, unspecified
[2018-10-05 19:06] LABS: CALCIUM 8.2 mg/dL (8.5-10.1); POTASSIUM 3.6 mmol/L (3.5-5.1)
[2018-10-05] MEDS: ATORVASTATIN CA 10 MG TABLET (FP) PO SCH (21:35)
--- NOTE | 2018-10-06 08:12 | PN ---
Progress Note, Physician Chief Complaint: SBO History of Present Illness: 78 yo male PMH dementia, COPD, B12 deficiency anemia, HLD, HTN, GERD, TIA w/ deficits who presents for evaluation of nausea and vomiting. He has been tolerating diet. But may need a colonoscopy to exclude a colonic source of bleeding and or malignancy. he will have colonoscopy as an outpatient - Current Medication List Current Medications: Active Medications Albuterol/Ipratropium (Duoneb -) 1 amp NEB Q6H PRN PRN Reason: Dyspnea Apixaban (Eliquis -) 10 mg PO BID [facility] Last Admin: 10/05/18 21:35 Dose: 10 mg Atorvastatin Calcium (Lipitor -) 10 mg PO HS [facility] Last Admin: 10/05/18 21:35 Dose: 10 mg Furosemide (Lasix -) 40 mg PO DAILY [facility] Last Admin: 10/05/18 10:39 Dose: 40 mg Metoprolol Succinate (Toprol Xl -) 25 mg PO DAILY [facility] Last Admin: 10/05/18 10:39 Dose: 25 mg Pantoprazole Sodium (Protonix -) 40 mg PO DAILY [facility] Last Admin: 10/05/18 10:39 Dose: 40 mg Potassium Chloride (Potassium Chloride Oral Liquid) 20 meq PO DAILY [facility] Last Admin: 10/05/18 10:39 Dose: 20 meq - Objective Vital Signs: Vital Signs Temperature 99.0 F 10/06/18 05:53 Pulse Rate 61 10/06/18 05:53 Respiratory Rate 20 10/06/18 05:53 Blood Pressure 132/80 10/06/18 05:53 O2 Sat by Pulse Oximetry (%) 97 10/05/18 21:00 Vital Signs Period Temp Pulse Resp BP Sys/Bocanegra Pulse Ox Last 24 Hr 97.9 F-99.0 F 61-75 18-20 102-155/53-93 97 CEA 5.7 which is slightly elevated Constitutional: Yes: Well Nourished, No Distress, Calm Eyes: Yes: Conjunctiva Clear, EOM Intact HENT: Yes: Atraumatic, Normocephalic Neck: Yes: Supple, Trachea Midline Cardiovascular: Yes: Regular Rate and Rhythm, S1, S2 Respiratory: Yes: Regular, CTA Bilaterally Gastrointestinal: Yes: Normal Bowel Sounds, Soft. No: Tenderness ...Rectal Exam: No: Guaiac Negative, Guaiac Positive Genitourinary: No: CVA Tenderness - Left, CVA Tenderness - Right Breast(s): No: Discharge from Nipple, Skin Changes Musculoskeletal: No: Muscle Pain, Muscle Weakness Extremities: No: Cool, Cyanosis Edema: No Peripheral Pulses WNL: Yes Peripheral Pulses: Left Radial: 2+, Right Radial: 2+, Left Doralis Pedis: 2+, Right Dorsalis Pedis: 2+, Left Femoral: 2+, Right Femoral: 2+ Integumentary: No: Jaundice, Skin Tear Neurological: Yes: Alert, Confusion. No: Oriented Psychiatric: Yes: Alert. No: Oriented Labs: CBC, BMP 10/04/18 06:30 10/05/18 18:00 INR, PTT INR 1.13 (0.83-1.09) H 10/02/18 17:11 Problem List - Problems (1) SBO (small bowel obstruction) Assessment/Plan: 78 yo male with MMP with Nausea and vomiting, CT abdomen interpreted as a SBO, this is partial SBO clinically, possible distal obstruction . GI evaluation for colonoscopy was met with resistance from patient (who is demented) no listed next of kin. I am concerned that there is a colon lesion with potential for bleeding or complete obstruction. Perhaps a barium enema could help clarify. CEA is mildly elevated 5.7 NPO and IVF hydration Diet as tolerated arrange for colonoscopy [facility] after identifying a person capable of consent Code(s): K56.609 - UNSP INTESTNL OBST, UNSP TO PARTIAL VERSUS COMPLETE OBST (2) COPD (chronic obstructive pulmonary disease) Code(s): J44.9 - CHRONIC OBSTRUCTIVE PULMONARY DISEASE, UNSPECIFIED (3) Hyperlipidemia Code(s): E78.5 - HYPERLIPIDEMIA, UNSPECIFIED (4) Anemia Code(s): D64.9 - ANEMIA, UNSPECIFIED Qualifiers: Anemia type: unspecified type Qualified Code(s): D64.9 - Anemia, unspecified (5) GIB (gastrointestinal bleeding) Code(s): K92.2 - GASTROINTESTINAL HEMORRHAGE, UNSPECIFIED Qualifiers: GI bleed type/associated pathology: unspecified gastrointestinal hemorrhage type Qualified Code(s): K92.2 - Gastrointestinal hemorrhage, unspecified (6) TIA (transient ischemic attack) Code(s): G45.9 - TRANSIENT CEREBRAL ISCHEMIC ATTACK, UNSPECIFIED
[2018-10-06] MEDS: PANTOPRAZOLE 40 MG TABLET (FP) PO SCH (09:43)
[2018-10-06] MEDS: FUROSEMIDE 40 MG TABLET (FP) PO SCH (09:43)
[2018-10-06] MEDS: POTASSIUM CHLORIDE ORAL LIQUID 20 MEQ/15 ML PO SCH (09:43)
[2018-10-06] MEDS: APIXABAN 5 MG TABLET PO SCH (09:43)
[2018-10-06] MEDS: metoPROLOL SUCCINATE 25 MG TAB.SR.24H (FP) PO SCH (09:43)
[2018-10-06 10:50] VITALS: BP 102/53; PULSE 62; TEMP 97.9
== END 2018-10-06 11:13 | DRG 389 ==
LOC: JER 10:29 → JERBED 15:23 → J6S 18:29
PROVIDERS: ADMIT Internal Medicine; ATTEND Internal Medicine
PROC: 0D9670Z Drainage of Stomach with Drainage Device, Via Natural or Artificial Opening (ICD-10-PCS; principal; 2018-10-02)
DX: K56.609 Unspecified intestinal obstruction, unspecified as to partial versus complete obstruction (principal); K92.2 Gastrointestinal hemorrhage, unspecified; I43 Cardiomyopathy in diseases classified elsewhere; I82.411 Acute embolism and thrombosis of right femoral vein; N39.0 Urinary tract infection, site not specified; J44.9 Chronic obstructive pulmonary disease, unspecified; F03.90 Unspecified dementia, unspecified severity, without behavioral disturbance, psychotic disturbance, mood disturbance, and anxiety; D64.9 Anemia, unspecified; E78.5 Hyperlipidemia, unspecified; I10 Essential (primary) hypertension; K21.9 Gastro-esophageal reflux disease without esophagitis; E53.8 Deficiency of other specified B group vitamins; M81.0 Age-related osteoporosis without current pathological fracture; I11.9 Hypertensive heart disease without heart failure; Z86.73 Personal history of transient ischemic attack (TIA), and cerebral infarction without residual deficits
CPT/HCPCS: 36415; 71045-TC-FY; 74019-TC-FY; 74177-TC; 80048; 80053; 81003; 82150; 82378; 82550; 83690; 83735; 84100; 84443; 84484; 85025; 85610; 85730; 86850; 86900; 86901; 87086; 87186; 93005; 93010; 93971-TC; 99285-25; J7030

== ENCOUNTER 2018-11-15 10:13 | Day surgery (SDC) | payer OTHER ==
[2018-11-15 12:14] VITALS: BMI 22.8
[2018-11-15 16:04] VITALS: TEMP 97.8
[2018-11-15 16:09] VITALS: BP 163/95; PULSE 71
== END 2018-11-15 14:05 | disposition home or self-care (01) ==
LOC: FASU-ENDO 10:13
PROVIDERS: ATTEND Internal Medicine Gastroenterology
PROC: 0DJD8ZZ Inspection of Lower Intestinal Tract, Via Natural or Artificial Opening Endoscopic (ICD-10-PCS; principal; 2018-11-15 13:24)
DX: D64.9 Anemia, unspecified (principal); K64.8 Other hemorrhoids; Z91.19 Patient's noncompliance with other medical treatment and regimen

== ENCOUNTER 2019-02-21 09:29 | Day surgery (SDC) | payer OTHER ==
[2019-02-19 16:34] VITALS: BMI 22.8
[2019-02-21] MEDS ORDERED: PROPOFOL 20 ML ONE (12:08)
[2019-02-21 12:52] VITALS: TEMP 97.5
[2019-02-21 13:30] VITALS: BP 120/67; PULSE 48
== END 2019-02-21 13:30 ==
LOC: FASU-ENDO 09:29
PROVIDERS: ATTEND Internal Medicine Gastroenterology
PROC: 0DJD8ZZ Inspection of Lower Intestinal Tract, Via Natural or Artificial Opening Endoscopic (ICD-10-PCS; principal; 2019-02-21 12:04)
DX: D64.9 Anemia, unspecified (principal); K64.1 Second degree hemorrhoids

== ENCOUNTER 2021-02-05 13:43 | Emergency (ER) | payer OTHER ==
[2021-02-05 14:16] VITALS: BMI 19.2
[2021-02-05 16:27] LABS: BASO % 0.6 % (0-2.0); EOS % 2.2 % (0-4.5); HEMATOCRIT 42.1 % (35.4-49); LYMPH % 17.4 % (8-40); MCH 31.5 pg (25.7-33.7); MCHC 33.2 g/dl (32.0-35.9); MEAN CELL VOLUME 94.9 fl (80-96); MEAN PLT VOLUME 8.6 fl (7.5-11.1); MONO % 8.2 % (3.8-10.2); NEUT % 71.6 % (42.8-82.8); PLATELET COUNT 194 10^3/uL (134-434); RBC 4.44 M/mm3 (4.00-5.60); RDW 15.2 % (11.9-15.9); WHITE BLOOD COUNT 5.4 K/mm3 (4.0-10.0)
[2021-02-05 16:36] LABS: CHLORIDE 111 mmol/L (98-107); SODIUM 144 mmol/L (136-145)
[2021-02-05 16:38] LABS: BLOOD UREA NITROGEN 21.3 mg/dL (7-18); CALCIUM 8.9 mg/dL (8.5-10.1); CO2 26 mmol/L (21-32); MAGNESIUM 2.2 mg/dL (1.8-2.4)
[2021-02-05 16:39] LABS: GLUCOSE,RANDOM 92 mg/dL (74-106); LIPASE 163 U/L (73-393)
[2021-02-05 16:41] LABS: CREATININE 1.2 mg/dL (0.55-1.3); SGOT/AST 25 U/L (15-37); SGPT/ALT 24 U/L (13-61)
[2021-02-05 16:42] LABS: PHOSPHOROUS 3.1 mg/dL (2.5-4.9)
[2021-02-05 16:43] LABS: TOT PROT 7.8 g/dl (6.4-8.2)
[2021-02-05 16:44] LABS: ALK PHOS 143 U/L (45-117)
[2021-02-05 16:47] LABS: ANION GAP 7 MMOL/L (8-16); BILIRUBIN,TOTAL 0.7 mg/dL (0.2-1); N-TERMINAL BNP 564.3 pg/ml (5-450)
[2021-02-06 00:44] VITALS: BP 105/78; PULSE 70; TEMP 98.4
== END 2021-02-06 00:42 | disposition short-term general hospital (02) ==
LOC: JER 13:43
DX: K56.2 Volvulus (principal)
CPT/HCPCS: 36415; 71045-TC-FY; 74177-TC; 80053; 82550; 83605; 83690; 83735; 83880; 84100; 84484; 85025; 93005; 93010; 99285-25; C9803; Q9967; U0003; U0005